=== PATIENT | female | born 1950 | race Caucasian/White ===

== ENCOUNTER 2024-11-22 19:45 | Emergency (ER) | payer MEDICARE, SELFPAY ==
--- NOTE | ~2024-11-22 | XR_ITS ---
EXAMINATION: XR femur LT min 2V DATE: 11/22/2024 22:37 INDICATION: Left femur injury post fall TECHNIQUE: Overlapping proximal and distal, AP and lateral views of the left femur were obtained. COMPARISON: None FINDINGS: Alignment is normal. No fracture. Chondrocalcinosis and mild osteoarthritis at the left hip. Left to dave knee arthroplasty which is in near-anatomic alignment. No evident knee joint effusion although as sessment is limited by an oblique plane of projection with portions of the femoral component projecti ng over largely obscuring the expected location of the suprapatellar pouch. IMPRESSION: 1. No acute osseous abnormality. Reviewed, dictated and finalized at location A.
--- NOTE | ~2024-11-22 | XR_ITS ---
EXAMINATION: XR chest 1V DATE: 11/22/2024 20:42 INDICATION: Femur fracture post fall TECHNIQUE: frontal view of the chest was obtained. COMPARISON: None FINDINGS: The lungs are clear with no focal airspace opacities, pulmonary edema, pleural effusion or pneumothor ax. Arch size is normal. Calcified left hilar lymph nodes consistent with old granulomatous disease. Mild to moderate thoracic spondylosis. IMPRESSION: 1. No acute cardiopulmonary disease. Reviewed, dictated and finalized at location A.
--- NOTE | ~2024-11-22 | XR_ITS ---
EXAMINATION: XR femur RT min 2V, XR hip RT 2V w AP pelvis DATE: 11/22/2024 20:42 INDICATION: Right hip and femur injury post fall TECHNIQUE: 1. Anteroposteriorview of the pelvis and anteroposterior and cross-table lateral views of the right h ip, 2. Overlapping frontal and lateral views of the right femur were obtained on overlapping proximal and distal images. COMPARISON: None. FINDINGS: Normal alignment at the right hip with no fracture or osteonecrosis. There is chondrocalcinosis and m inimal osteoarthritis at the bilateral hips. Severe lower lumbar spondylosis and mild bilateral sacra l iliac osteoarthritis. There is no oblique fracture of the distal right femoral metaphysis proximal to the femoral component of a right total knee arthroplasty. There is 4 cm proximal and medial displacement of the fracture a nd 30 degree varus angulation. The fracture does not appear to extend to involve the femoral componen t of the arthroplasty. Although suboptimally profiled the articulation between the femoral and tibial components appear to remain normal. The patella is obscured and is unclear where there has been an a ssociated patellar resurfacing. IMPRESSION: 1. Displaced and angulated distal metaphyseal fracture of the right femur which appears to approach c lose to but not directly involve the femoral component of a right total knee arthroplasty. Reviewed, dictated and finalized at location A. IMPRESSION: 1. Displaced and angulated distal metaphyseal fracture of the right femur which appears to approach close to but not directly involve the femoral component of a right total knee arthroplasty.
[2024-11-22 19:46] VITALS: BP 154/69; PULSE 51; RESP 18; TEMP 36.4; O2SAT 99
[2024-11-22 21:07] LABS: Hematocrit 39.0 % (37.0-47.0); Hemoglobin 12.3 g/dL (12.0-15.0); Immature Granulocyte Percent A 0.6 % (0-0.5); Lymphocytes Absolute Auto 0.84 K/mm3 (0.9-3.2); Mean Corpuscular HGB Conc 31.5 g/dl (32-36); Mean Corpuscular Hemoglobin 28.7 pg (26-34); Mean Corpuscular Volume 91.1 fl (80-100); Nucleated Red Blood Cells Absolute Auto 0.000 K/mm3 (0.0-0.012); Nucleated Red Blood Cells Perc 0.0 % (0.0-0.2); Platelet Count Result 171 k/mm3 (150-375); Red Blood Count 4.28 M/mm3 (4.2-5.4); White Blood Count 7.9 K/mm3 (4.5-10.0)
[2024-11-22] MEDS: ONDANSETRON INJ 4 MG/2 ML VIAL IV PUSH (21:07)
[2024-11-22] MEDS: HYDROmorphone HCL INJ (*CRX) 2 MG/ML VIAL 0.5 MG IV PUSH (21:07)
[2024-11-22 21:20] LABS: INR 1.0; Partial Thromboplastin Time 24.0 Seconds (22.3-36.8); Prothrombin Time 13.4 Seconds (11.1-14.7)
[2024-11-22 21:25] LABS: Alanine Aminotransferase 11 U/L (6-35); Albumin Level 4.0 g/dL (3.5-5.1); Alkaline Phosphatase 95 U/L (38-126); Anion Gap 3 mmol/L (4-12); Aspartate Amino Transferase 21 U/L (14-36); Bilirubin,Total 0.3 mg/dL (0.2-1.3); Blood Urea Nitrogen 37 mg/dL (7-17); Calcium 8.6 mg/dL (8.4-10.2); Carbon Dioxide 28 mmol/L (22-30); Chloride 102 mmol/L (98-107); Estimated CRCL calculation 32 ml/min; Estimated Glomerular Filt Rate 30; Glucose 211 mg/dL (65-110); Potassium 4.0 mmol/L (3.4-5.0); Sodium 133 mmol/L (137-145); Total Protein 6.6 g/dL (6.3-8.2)
[2024-11-22 21:55] VITALS: BP 154/57; PULSE 58; RESP 15; O2SAT 95
--- OUTSIDE RECORDS SUMMARY | 2024-11-22 22:46 | XMS_ITS | Continuity of Care Document ---
Author Organization [facility] Address [address] [place] [address] Phone Care Team Providers Care Depalletizer Operator Name Role Phone Justin Gardner PA-C Unavailable Unavailable Allergies, Adverse Reactions, Alerts Substance Reaction Status Criticality Penicillins Swelling Active No Information Medications Medication Instructions Dosage Effective Dates (start - stop) Status Comments Lantus Solostar U-100 Insulin 100 unit/mL (3 mL) subcutaneous pen - Active pioglitazone 30 mg tablet - Active metformin 500 mg tablet - Ac tive rosuvastatin 20 mg tablet - Active memantine 5 mg tablet - Acti ve fluconazole 150 mg tablet TAKE ONE TABLE T BY MOUTH FOR 1 DOSE - Active methimazole 5 mg tablet TAKE ONE TABLET EVERY DAY - Active donepezil 10 mg tablet - Act leif lisinopril 20 mg tablet TAKE ONE TABLET BY MOUTH EVERY DAY DIRECTED - Active rosuvastatin 10 mg tablet - Active sulfamethoxazole 800 mg-trimethoprim 160 mg tablet TAKE ONE TABLET EVERY 12 HOURS - Active cephalexin 500 mg capsule TAKE ONE CAPSU LE BY MOUTH EVERY 8 HOURS FOR 7 DAYS. - Active hydrochlorothiazide 25 mg tablet - Active Procedures Procedure Date OFFICE/OUTPATIENT VISIT, EST THERAPEUTIC EXERCISES NEUROMUSCULAR REEDUCATION THERAPEUTIC ACTIVITIES THERAPEUTIC EXERCISES NEUROMUSCULAR REEDUCATION MANUAL THERAPY 1/> REGIONS THERAPEUTIC EXERCISES MANUAL THERAPY 1/> REGIONS THERAPEUTIC EXERCISES MANUAL THERAPY 1/> REGIONS THERAPEUTIC EXERCISES PT Eval Moderate Complexity THERAPEUTIC EXERCISES XRAY C-SPINE, 4-5 VIEWS OFFICE/OUTPATIENT VISIT, EST XRAY KNEE, 4+ VIEWS XRAY KNEE, 4+ VIEWS XRAY PELVIS, 1-2 VIEWS OFFICE/OUTPATIENT VISIT, NEW Advance Directives Directive Yes / No Effective Date File Name No Information Encounters Encounter Description Practice Location Reason(s) For Visit Diagnoses Date Provider Providers Copied on Encounter OFFICE/OUTPA TIENT VISIT, EST [facility], [address] [place] [address], [address], [place] tel:[phone] [facility] Gurinder cervical spine (chief complaint) Body mass index [BMI] 32.0-32.9, adultSpondylo sis without myelopathy or radiculopathy , cervical regionCervica lgia 5 Jj Anderson. [address], [place], [place], [id number], [place]. tel:[phone] Referring Provider: DOUGLAS SCHAFER, [address] [facility], [place], [address]. tel:[phone] [facility], [address] [place] [address], [address], [place] tel:[phone] [facility] Jeremy-Anish anderson CervicalgiaAb normal postureStiffn ess of other specified joint, not elsewhere classified 5 Diana Mas. [address], [place], [address], [place]. tel:[phone] Referring Provider: Girffin Jiang, [address], [place], [address]. tel:[phone] [facility], [address] [place] [address], [address], [place] tel:[phone] [facility] CervicalgiaAb normal postureStiffn ess of other specified joint, not elsewhere classified 5 Kavon Jones. [address], [place], [id number], [place]. tel:[phone] Referring Provider: Griffin Jiang, [address] [facility] [facility] , [place], [address]. tel:[phone] [facility], [address] [place] [address], [address], [place] tel:[phone] [facility] CervicalgiaAb normal postureStiffn ess of other specified joint, not elsewhere classified 4 Kavon Jones. [address], [place], [id number], [place]. tel:[phone] Referring Provider: Griffin Jiang, [address] [facility] [address] , [place], [address]. tel:[phone] [facility], [address] [place] [address], [address], [place] tel:[phone] [facility] CervicalgiaAb normal postureStiffn ess of other specified joint, not elsewhere classified 4 Kavon Jones. [address], [place], [id number], [place]. tel:[phone] Referring Provider: Griffin Jiang, [address] [facility] , [place], [address]. tel:[phone] [facility], [address] [place] [address], [address], [place] tel:[phone] [facility] CervicalgiaAb normal postureStiffn ess of other specified joint, not elsewhere classified 4 Kavon Jones. [address] [place], [place], [address], [place]. tel:[phone] Referring Provider: Griffin Jiang, [address] [facility] , [place], [address]. tel:[phone] [facility], [address] [place] [address], [address], [place] tel:[phone] [facility] Therapy-Pow monica CervicalgiaAb normal postureStiffn ess of other specified joint, not elsewhere classified 4 Kavon Jones. [address], [place], [id number], [place]. tel:[phone] Referring Provider: Griffin Jiang, [address] [facility], [place], [address]. tel:[phone] OFFICE/OUTPA TIENT VISIT, [facility], [address] [place] [address], [facility], [place] tel:[phone] [facility] Neto thoracic spine (chief complaint) cervical spine (chief complaint) Body mass index [BMI] 32.0-32.9, adultCervical spondylosis 4 Rory Moya. [address] [place], [place], [id number], [place]. tel:[phone] Referring Provider: DOUGLAS SCHAFER, [address] [facility], [place], [address]. tel:[phone] OFFICE/OUTPA TIENT VISIT, [facility], [address] [place] [address], [address], [place] tel:[phone] [facility] Duque knee pain on the right greater than the left (chief complaint) Presence of artificial knee joint, bilateralBila teral primary osteoarthriti s of hip 2 Buzz Shen. [address] [place], [place], [id number], [place]. tel:[phone] Family History Family Member Type Diagnosis Age At Onset Father Problem (finding) Cancer, brain Problem Family history of Diabetes m ellitus Mother Problem (finding) Diabetes mellitus Payers Payer name Insurance type Covered alliance party ID Authoriza tion(s) [employer] Gold Or [employer] Medicare [id number] Social History Type Description Quantity Date Captured Comments Alcohol Use Details No Caffeine Use Details Unknown Tobacco Use Status Current non-smoker Smoking Status Never smoker Non-Smoking Tobacco Use Details : No Details Available : No Details Available Sex Female Vital Signs Date / Time: Height Weight BMI Pulse Rate Blood Pressure Temperature Respiratory Rate Body Surface Area Head Circumference Head Circ. Percentile Wt./Federico. Percentile BMI percentile Pulse Ox Inhaled Ox 10:41 AM 66.00 in 92.351 kg (203.60 lbs) 32.8 6 kg/m eter (2) Chief Complaint And Reason For Visit From encounter dated '06/03/2024 11:00'. cervical spine (chief complaint). Description: Ms Bass is a 73 year old female who complains of cervical spine. She presents with pain. The problem is improving. She rates her worst pain as 6/10. She rates her current pain as 3/10. Reason For Referral Reason For Referral No Information Plan Of Treatment Date Type Action Status Goal Dietary manageme nt education, guidance, and counseling completed Goal Lifestyle educat ion regarding diet completed Future Order: Radiology Order [facility] X-ray; Complete (4+ views) ([id number]), Ordered on: Ordered History Of Present Illness Encounter Date Complaint History Of Prese nt Illness cervical spine Ms Bass is a 8 2 year old female who complains of cervical spine. She presents with pain. The problem is improving. She rates her worst pain as 6/10. She rates her current pain as 3/10. thoracic spine Sophie Bass is a 73 year old female. She presents with pain and pain. She states that the symptoms have been acute non-traumatic and began 0 to 3 months ago. The symptoms occur constantly. Currently the patient states that the symptoms are moderate-severe. The pain is described as aching and dull. The patient is experiencing pain in the following location: mid back. She rates her worst pain as 8/10. She rates her current pain as 8/10. The symptoms are aggravated by sitting, walking and lateral bending. The patient has had a previous MRI. Prior NSAIDs include unspecified NSAIDS. Prior pain medications include unspecified pain medications. cervical spine Sophie Bass is a 73 year old female. She presents with pain and pain. She states that the symptoms have been acute non-traumatic and began 0 to 3 months ago. The symptoms occur constantly. Currently the patient states that the symptoms are moderate-severe. The pain is described as aching and dull. The patient is experiencing pain in the following location: neck. She rates her worst pain as 8/10. She rates her current pain as 8/10. The symptoms are aggravated by sitting, walking and lateral bending. The patient has had a previous MRI. Prior NSAIDs include unspecified NSAIDS. Prior pain medications include unspecified pain medications. knee pain on the rig ht greater than the left Sophie Bass is a 71 year old female. She presents with pain on the right greater than the left. The symptoms occur constantly with intermittent worsening. Currently the patient states that the symptoms are moderate. The pain is described as aching and sharp. The symptoms are aggravated by walking and ascending stairs. She denies having any associated symptoms. Functional Status Date Functional Assessmen t No Information Instructions Date Instruction Additional Infor martínez Dietary management e ducation, guidance, and counseling Related to Body mass index [BMI] 32.0-32.9, adult Exercise promotion: strength tra ining Related to Body mass index [BMI] 32.0-32.9, adult Lifestyle education regarding di et Related to Body mass index [BMI] 32.0-32.9, adult Giving encouragement to exercise Related to Body mass index [BMI] 32.0-32.9, adult Assessments Type Assessment Date assessment Body mass index [BMI] 32.0-32.9, adult assessment Spondylosis without myelopathy or radiculopathy, cervical region Feb-03-2025 assessment Cervicalgia Patient Care Teams Name Effective Dates (start - stop) Status Members No Information
--- OUTSIDE RECORDS SUMMARY | 2024-11-22 22:46 | XMS_ITS | Continuity of Care Document ---
Author Organization [facility] Address [address] [place] [address] Phone Care Team Providers Care External Grinder Name Role Phone Deb Garsia OD Unavailable Unavailable Allergies, Adverse Reactions, Alerts Substance Reaction Status Criticality Penicillins Anaphylaxis, Skin lesion, Angioe Active No Information Procedures Procedure Date Fundus photography Determination of refractive state Comp eye examination, estab patient Premium Frames Vision Basic Progressive C39 Lens Polycarb Lens Scratch resistant coating Basic Progressive C39 Lens Polycarb Lens Premium Frames Vision Fundus photography Determination of refractive state Office/outpatient visit,[facility] 2021 Advance Directives Directive Yes / No Effective Date File Name No Information Encounters Encounter Description Practice Location Reason(s) For Visit Diagnoses Date Provider Providers Copied on Encounter [facility], [address] [place], [place], [id number] tel:[phone] [facility] No Information 4 Sun Boyd. [address] [place], [place], [id number] . 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 [address] [place], [place], [id number] . tel: [phone] [facility], [address] [place], [place], [address] tel:[phone] [facility] No Information 4 Garsia Deb. [address] [place], [place], [id number] . tel: [phone] [facility], [address] [place], [place], [address] tel:[phone] [facility] No Information 2 Sun Boyd. [address] [place], [place], [address] . tel: [phone] Office/outpa tient visit,[facility], [address] [place], [place], [id number] tel:[phone] [facility] routine exam (chief complaint) Type 2 DM w/ severe nonproliferative diabetic retinopathy w/o macular edema of right eyeType 2 DM w/ moderate nonproliferative diabetic retinopathy w/o macular edema of left eyeCombined forms of age-related cataract, bilateralPresbyopia 2 Garsia Deb. [address] [place], [place], [id number] . tel: [phone] Family History Family Member Type Diagnosis Age At Onset Mother Problem (finding) Cardiovascular disease Father Problem (finding) Cancer, brain Mother Problem (finding) Diabetes mellitus Payers Payer name Insurance type Covered libertarian ID Authorjaquelinea tijanine(s) [employer] MEDICARE CI [id number] Social History Type Description Quantity Date Captured Comments Alcohol Use Details Unknown Caffeine Use Details Unknown Tobacco Use Status No Information Smoking Status No Information Sex Female Sexual Orientation Straight or heterosexual Gender Identity Female History Of Present Illness Encounter Date Complaint History Of Prese nt Illness routine exam The 72 year old patient presents for evaluation of routine exam. Reason for visit: routine eye exam Last eye exam: 11/2021Insurance: [employer] Medicare Any vision complaints? needing new glassesDiabetic (yes or no +diagnosis date)? yesIf yes, last A1C: Are you ok with being dilated today? 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
--- OUTSIDE RECORDS SUMMARY | 2024-11-22 22:46 | XMS_ITS | Data Portability ---
Author Organization [place] - [facility], [facility] [place] Address [address] [place] [address] Care Team Providers [facility] Location Manager Name Role Phone MARTINE GONZALEZ Retail Salesworker [phone] PATRICIA PAUL Neurologist FELIBERTO RIOJAS Information Architect Assessment Encounter Date Assessment Date Assessment LastModified by Organization Details LastModified Time 08/27/2024 08/27/2024 Patient presente d to office today for their Medicare Annual Wellness Visit. Education was provided on healthy nutrition, including a diet rich in fruits and vegetables, minimizing simple carbohydrates, salt, and saturated fats. Encouraged regular cardiovascular exercise such as walking at least 30 minutes daily, 5 times per week. Emphasized preventive health measures and educated pt on fall prevention and community-based lifestyle interventions to help reduce health risks and promote healthy living. Patient presented to office today for their Annual Wellness Visit. Active problems, PMH, Surgical History, Family History, Social History, Behavioral Health, Current Meds, and Allergies were reviewed and updated as clinically indicated. Discussed risk factors and provided referrals to educational and counseling services as appropriate. [email or web address] Not available 08/22/2024 08:52:15 Plan of Treatment Reminders Order Date Submit Date Provider Last Modified By Organization Details Last Modified Time Details Appointments ESTABLISH ED BRIEF-15 2024 01:30P Apolinar SCHAFER MD Not available Not available Not available ESTABLISH ED INTERMEDI ATE-30 2025 01:00P Apolinar SCHAFER MD Not available Not available Not available Lab CMP, serum or plasma 2024 025 [facility], [address], [address], [place], [address], 08/27/2024 20:45:52 HbA1c (hemoglob in A1c), blood 2024 025 [facility], [address], [address], [place], [address], 08/27/2024 20:11:57 lipid panel, serum 2024 025 [facility], [address], [address], [place], [address], 08/27/2024 20:45:59 microalbu min/creat inine, mass ratio, urine 2024 025 [facility], [address], [address], [place], [address], 08/28/2024 01:56:37 TSH, serum or plasma 2024 025 [facility], [address], [address], [place], [address], 05/27/2024 19:40:57 HbA1c (hemoglob in A1c), blood 2024 025 [facility], [address], [address], [place], [address], 05/27/2024 19:45:41 renal function panel, serum 2024 025 [facility], [address], [address], [place], [address], 05/27/2024 19:45:15 HbA1c (hemoglob in A1c), blood 2023 024 [facility], [address], [address], [place], [address], 02/19/2024 20:52:02 microalbu min/creat inine, mass ratio, urine 2023 [facility], [address], [address], [place], [address], 02/19/2024 20:57:52 renal function panel, serum 2023 [facility], [address], [address], [place], [address], 02/19/2024 19:48:33 erythrocy te sedimenta tion rate, QN, blood 2023 [facility], [address], [address], [place], [address], 02/12/2024 19:17:46 C reactive protein, QN, serum or plasma 2023 [facility], [address], [address], [place], [address], 02/12/2024 21:38:22 CMP, serum or plasma 2023 [facility], [address], [address], [place], [address], 02/12/2024 21:31:25 CBC w/ auto diff 2023 [facility], [address], [address], [place], [address], 02/12/2024 19:06:34 magnesium , serum or plasma 2023 024 [facility], [address], [address], [place], [address], 02/12/2024 21:31:27 vitamin D, 25-hydrox y, total, serum 2023 [facility], [address], [address], [place], [address], 02/12/2024 21:31:30 Referral None recorded. Procedures None recorded. Surgeries None recorded. Imaging MRI, cervical spine, w/o contrast 2023 [facility], [address], [address], [place], [address], 03/04/2024 15:58:45 MRI, brain, w/o contrast 2023 [facility], [address], [address], [place], [address], 03/04/2024 15:32:42 Medication Orders methocarb jak 500 mg tablet [address] [facility], [address] [place] [address], [address], 08/27/2024 10:19:08 hydrocodo ne 5 mg-acetam inophen 325 mg tablet 2023 [facility], [address] [place] [address], [address], 02/12/2024 14:35:40 Patient TargetsNo targets recorded. Patient Instructions Encounter Date Encounter Id Patient Instructions Last Modified By Organization Details Last Modified Time 02/19/2024 [id number] Additional follow-up to be determined. Her indicated that they may be moving [place] of [place] in a few months. [email or web address] Not available 02/19/2024 15:12:12 05/27/2024 [id number] I may need to postpone her for wellness visit for a week or so so that I can recheck her labs again. [email or web address] Not available 05/27/2024 14:10:15 08/27/2024 [id number] Education was provided on healthy nutrition, including a diet rich in fruits and vegetables, minimizing simple carbohydrates, salt, and saturated fats. Encouraged regular cardiovascular exercise such as walking at least 30 minutes daily, 5 times per week. Emphasized preventive health measures and community-based lifestyle interventions to help reduce health risks and promote healthy living. Schedule next annual exam in 1 year. Discussion Summary Active problems, PMH, surgical history, family history, social history, behavioral health, current meds, and allergies were reviewed and updated as clinically indicated. The findings of today's visit were discussed with the patient and her family. Medication reconciled and update completed. [email or web address] Not available 08/27/2024 08:33:29 Reason for Referral None Reported. Results Created Date Observation Date Name Description Value Unit Range Abnormal Flag Note LastModifiedBy Organization Detail LastModifiedTime 02/12/2002/12/2024 CBC-A UTO DIFF WBC. 8.5 K/uL 3.8-11 .0 normal Not Available [facility] [address], [place], [address], 02/12/2024 19:06:34 02/12/2002/12/2024 CBC-A UTO DIFF ne%. 74.1 % 43.9-7 8.2 normal Not Available [facility] [address], [place], [address], 02/12/2024 19:06:34 02/12/20 24 02/12/2024 CBC-A UTO DIFF ly%. 15.2 % 13.4-4 3.9 normal Not Available [facility] [address], [place], [address], 02/12/2024 19:06:34 02/12/20 24 02/12/2024 CBC-A UTO DIFF MO%. 8.9 % 4.9-12 .1 normal Not Available [facility] [address], [place], [address], 02/12/2024 19:06:34 02/12/2002/12/2024 CBC-A UTO DIFF eo%. 1.2 % 0.3-5. 1 normal Not Available [facility] [address], [place], [address], 02/12/2024 19:06:34 02/12/2002/12/2024 CBC-A UTO DIFF ba%. 0.6 % 0.0-1. 6 normal Not Available [facility] [address], [place], [address], 02/12/2024 19:06:34 02/12/2002/12/2024 CBC-A UTO DIFF ne#. 6.3 K/uL 1.6-8. 6 normal Not Available [facility] [address], [place], [address], 02/12/2024 19:06:34 02/12/2002/12/2024 CBC-A UTO DIFF ly#. 1.3 K/uL 0.4-4. 8 normal Not Available [facility] [address], [place], [address], 02/12/2024 19:06:34 02/12/2002/12/2024 CBC-A UTO DIFF MO#. 0.8 K/uL 0.2-1. 3 normal Not Available [facility] [address], [place], [address], 02/12/2024 19:06:34 02/12/2002/12/2024 CBC-A UTO DIFF eo#. 0.1 K/uL 0.0-0. 6 normal Not Available [facility] [address], [place], [address], 02/12/2024 19:06:34 02/12/2002/12/2024 CBC-A UTO DIFF ba#. 0.1 K/uL 0.0-0. 2 normal Not Available [facility] [address], [place], [address], 02/12/2024 19:06:34 02/12/20 24 02/12/2024 CBC-A UTO DIFF RBC. 4.41 M/uL 3.74-5 .11 normal Not Available [facility] [address], [place], [address], 02/12/2024 19:06:34 02/12/2002/12/2024 CBC-A UTO DIFF HGB. 11.6 g/dL 12.0-1 5.3 low Not Available [facility] [address], [place], [address], 02/12/2024 19:06:34 02/12/20 24 02/12/2024 CBC-A UTO DIFF HCT. 34.7 % 34.4-4 4.8 normal Not Available [facility] [address], [place], [address], 02/12/2024 19:06:34 02/12/20 24 02/12/2024 CBC-A UTO DIFF MCV. 79 fL 82-99 low Not Available [facility] [address], [place], [address], 02/12/2024 19:06:34 02/12/2002/12/2024 CBC-A UTO DIFF MCH. 26 pg 28-34 low Not Available [facility] [address], [place], [address], 02/12/2024 19:06:34 02/12/20 24 02/12/2024 CBC-A UTO DIFF MCHC. 33 g/dL 33-36 normal Not Available [facility] [address], [place], [address], 02/12/2024 19:06:34 02/12/20 24 02/12/2024 CBC-A UTO DIFF RDW. 17.3 % 12.0-1 5.2 high Not Available [facility] [address], [place], [address], 02/12/2024 19:06:34 02/12/20 24 02/12/2024 CBC-A UTO DIFF plt. 260 K/uL 140-40 0 normal Not Available [facility] [address], [place], [address], 02/12/2024 19:06:34 02/12/20 24 02/12/2024 SEDIM ENTAT ION RATE ESR. 55 mm/HR 2-30 high Not Available [facility] [address], [place], [address], 02/12/2024 19:17:46 02/12/20 24 02/12/2024 COMP. METAB OLIC PANEL glu 190 mg/dL 70-100 high Not Available [facility] [address], [place], [address], 02/12/2024 21:31:25 02/12/20 24 02/12/2024 COMP. METAB OLIC PANEL Na 140 mmol/ L 134-14 3 normal Not Available [facility] [address], [place], [address], 02/12/2024 21:31:25 02/12/20 24 02/12/2024 COMP. METAB OLIC PANEL K 4.4 mmol/ L 3.5-5. 2 normal Not Available [facility] [address], [place], [address], 02/12/2024 21:31:25 02/12/20 24 02/12/2024 COMP. METAB OLIC PANEL cL 99 mmol/ L 95-108 normal Not Available [facility] [address], [place], [address], 02/12/2024 21:31:25 02/12/20 24 02/12/2024 COMP. METAB OLIC PANEL CO2 27 mmol/ L 22-32 normal Not Available [facility] [address], [place], [address], 02/12/2024 21:31:25 02/12/20 24 02/12/2024 COMP. METAB OLIC PANEL Ca 9.5 mg/dL 8.9-10 .5 normal Not Available [facility] [address], [place], [address], 02/12/2024 21:31:25 02/12/20 24 02/12/2024 COMP. METAB OLIC PANEL BUN 37 mg/dL 6-25 high Not Available [facility] [address], [place], [address], 02/12/2024 21:31:25 02/12/20 24 02/12/2024 COMP. METAB OLIC PANEL creat 1.49 mg/dL 0.56-1 .16 high Not Available [facility] [address], [place], [address], 02/12/2024 21:31:25 02/12/20 24 02/12/2024 COMP. METAB OLIC PANEL egfrcr 37 mL/mi n/1.7 3m^2 >60 low The CKD-E PI 2020 equat ion has not been valid ated in pregn ant women . Not Available [facility] [address], [place], [address], 02/12/2024 21:31:25 02/12/20 24 02/12/2024 COMP. METAB OLIC PANEL tpro 6.6 g/dL 5.9-7. 9 normal Not Available [facility] [address], [place], [address], 02/12/2024 21:31:25 02/12/20 24 02/12/2024 COMP. METAB OLIC PANEL alb 4.1 g/dL 3.4-5. 3 normal Not Available [facility] [address], [place], [address], 02/12/2024 21:31:25 02/12/2002/12/2024 COMP. METAB OLIC PANEL A/G ratio 1.6 g/dL 1.0-2. 5 normal Not Available [facility] [address] [place] [address] [address], [place], [address], 02/12/2024 21:31:25 02/12/20 24 02/12/2024 COMP. METAB OLIC PANEL bili, tot 0.6 mg/dL 0.3-1. 2 normal Not Available [facility] [address], [place], [address], 02/12/2024 21:31:25 02/12/20 24 02/12/2024 COMP. METAB OLIC PANEL alk phos 78 IU/L 33-130 normal Not Available [facility] [address], [place], [address], 02/12/2024 21:31:25 02/12/20 24 02/12/2024 COMP. METAB OLIC PANEL AST 8 IU/L 10-42 low Not Available [facility] [address] [place] [address] Rd [address], [place], [address], 02/12/2024 21:31:25 02/12/20 24 02/12/2024 COMP. METAB OLIC PANEL ALT 6 IU/L 7-52 low Not Available [facility] [address], [place], [address], 02/12/2024 21:31:25 02/12/20 24 02/12/2024 MAGNE SIUM magnesium 1.9 mg/dL 1.7-2. 6 normal Not Available [facility] [address], [place], [address], 02/12/2024 21:31:27 02/12/2002/12/2024 VITAM IN D, 25 OH, TOTAL vitd 29 NG/mL 30-100 low 20 - 29 ng/mL is consi dered insuf ficmarc nt. Not Available [facility] [address], [place], [address], 02/12/2024 21:31:30 02/12/20 24 02/12/2024 CRP CRP 112.4 mg/L <10.0 high Not Available [facility] [address], [place], [address], 02/12/2024 21:38:22 02/13/20 24 02/12/2024 RF (MAHIN T) rf(qn) <14.0 IU/mL <14.0 normal Not Available [facility] [address], [place], [address], 02/13/2024 17:56:37 02/13/20 24 02/13/2024 MANISH SCREE N, IFA, W/REF L TITER AND PATTE RN - 249 MANISH screen, ifa NEGATI VE negati ve normal MANISH IFA is a first line scree n for detec ting the prese nce of up to appro ximat isreal 150 autoa ntibo dies in vario us autoi mmune disea ses. A negat leif MANISH IFA resul t sugge sts an MANISH-a ssoci ated autoi mmune disea se is not prese nt at this time, but is not defin itive . If there is high clini ira suspi cion for Sjogr en's syndr ome, testi ng for anti- SS-A/ Ro antib mariluz shoul d be consi dered . Anti- Narda-1 antib mariluz shoul d be consi dered for clini karely suspe cted infla mmato ry myopa nick . AC-0: Negat leif Inter natio nal Conse nsus on MANISH Patte rns (http s://d oi.or g/10. 1515/ [facility]- 2017- 0052) For addit ional infor ney abrams e refer to http: //[facility] danilo earl.Que stDia gnost ics.c om/fa q/FAQ 177 (This link is being provi ded for infor matio nal/ educa chencho l purpo ses only. ) Not Available [facility] [address], [place], [address], 02/16/2024 19:20:39 02/19/2002/19/2024 RENAL FUNCT ION PANEL glu 207 mg/dL 70-100 high Not Available [facility] [address], [place], [address], 02/19/2024 19:48:33 02/19/2002/19/2024 RENAL FUNCT ION PANEL Na 140 mmol/ L 134-14 3 normal Not Available [facility] [address], [place], [address], 02/19/2024 19:48:33 02/19/2002/19/2024 RENAL FUNCT ION PANEL K 4.3 mmol/ L 3.5-5. 2 normal Not Available [facility] [address], [place], [address], 02/19/2024 19:48:33 02/19/20 24 02/19/2024 RENAL FUNCT ION PANEL cL 101 mmol/ L 95-108 normal Not Available [facility] [address], [place], [address], 02/19/2024 19:48:33 02/19/20 24 02/19/2024 RENAL FUNCT ION PANEL CO2 29 mmol/ L 22-32 normal Not Available [facility] [address], [place], [address], 02/19/2024 19:48:33 02/19/20 24 02/19/2024 RENAL FUNCT ION PANEL BUN 24 mg/dL 6-25 normal Not Available [facility] [address], [place], [address], 02/19/2024 19:48:33 02/19/20 24 02/19/2024 RENAL FUNCT ION PANEL creat 1.49 mg/dL 0.56-1 .16 high Not Available [facility] [address], [place], [address], 02/19/2024 19:48:33 02/19/2002/19/2024 RENAL FUNCT ION PANEL egfrcr 37 mL/mi n/1.7 3m^2 >60 low The CKD-E PI 2020 equat ion has not been valid ated in pregn ant women . Not Available [facility] [address], [place], [address], 02/19/2024 19:48:33 02/19/20 24 02/19/2024 RENAL FUNCT ION PANEL Ca 9.2 mg/dL 8.9-10 .5 normal Not Available [facility] [address], [place], [address], 02/19/2024 19:48:33 02/19/20 24 02/19/2024 RENAL FUNCT ION PANEL alb 4.0 g/dL 3.4-5. 3 normal Not Available [facility] [address], [place], [address], 02/19/2024 19:48:33 02/19/20 24 02/19/2024 RENAL FUNCT ION PANEL phosphorus 4.0 mg/dL 2.5-4. 6 normal Not Available [facility] [address], [place], [address], 02/19/2024 19:48:33 02/19/20 24 02/19/2024 HEMOG LOBIN A1C HA1C 7.4 % <5.7 high Consi stent with diabe paola Not Available [facility] [address], [place], [address], 02/19/2024 20:52:02 02/19/20 24 02/19/2024 HEMOG LOBIN A1C EAG 166 mg/dL Not Available [facility] [address], [place], [address], 02/19/2024 20:52:02 02/19/20 24 02/19/2024 MICRO ALBUM IN W/UR CRE microalb. 444 mg/L <20 high Not Available [facility] [address] [address], [place], [address], 02/19/2024 20:57:51 02/19/20 24 02/19/2024 MICRO ALBUM IN W/UR CRE cre (U) 71 mg/dL 10-300 normal Not Available [facility] [address] [facility] [address], [place], [address], 02/19/2024 20:57:51 02/19/20 24 02/19/2024 MICRO ALBUM IN W/UR CRE microalbumin /creatinine ratio 627 mg/g <30 high Urine Alb/C reat Ratio : <30 mg/g Amberly l 30-30 0 mg/g Abnor mal >300 mg/g High Abnor mal Not Available [facility] [address], [place], [address], 02/19/2024 20:57:51 05/27/1905/27/2024 TSH TSH 0.590 uIU/m L 0.340- 4.200 normal Not Available [facility] [address], [place], [address], 05/27/2024 19:40:57 05/27/19 25 05/27/2024 RENAL FUNCT ION PANEL glu 179 mg/dL 70-100 high Not Available [facility] [address] [place] [address] Rd [address], [place], [address], 05/27/2024 19:45:15 05/27/19 25 05/27/2024 RENAL FUNCT ION PANEL Na 141 mmol/ L 134-14 3 normal Not Available [facility] [address] [place] [address] Rd [address], [place], [address], 05/27/2024 19:45:15 05/27/19 25 05/27/2024 RENAL FUNCT ION PANEL K 4.6 mmol/ L 3.5-5. 2 normal Not Available [facility] [address] [place] [address] Rd [address], [place], [address], 05/27/2024 19:45:15 05/27/19 25 05/27/2024 RENAL FUNCT ION PANEL cL 103 mmol/ L 95-108 normal Not Available [facility] [address], [place], [address], 05/27/2024 19:45:15 05/27/19 25 05/27/2024 RENAL FUNCT ION PANEL CO2 27 mmol/ L 22-32 normal Not Available [facility] [address] [place] [address] Rd [address], [place], [address], 05/27/2024 19:45:15 05/27/19 25 05/27/2024 RENAL FUNCT ION PANEL BUN 37 mg/dL 6-25 high Not Available [facility] [address], [place], [address], 05/27/2024 19:45:15 05/27/19 25 05/27/2024 RENAL FUNCT ION PANEL creat 1.72 mg/dL 0.56-1 .16 high Not Available [facility] [address], [place], [address], 05/27/2024 19:45:15 05/27/19 25 05/27/2024 RENAL FUNCT ION PANEL egfrcr 31 mL/mi n/1.7 3m^2 >60 low The CKD-E PI 2020 equat ion has not been valid ated in pregn ant women . Not Available [facility] [address], [place], [address], 05/27/2024 19:45:15 05/27/19 25 05/27/2024 RENAL FUNCT ION PANEL Ca 8.9 mg/dL 8.9-10 .5 normal Not Available [facility] [address], [place], [address], 05/27/2024 19:45:15 05/27/19 25 05/27/2024 RENAL FUNCT ION PANEL alb 4.1 g/dL 3.4-5. 3 normal Not Available [facility] [address], [place], [address], 05/27/2024 19:45:15 05/27/19 25 05/27/2024 RENAL FUNCT ION PANEL phosphorus 4.4 mg/dL 2.5-4. 6 normal Not Available [facility] [address], [place], [address], 05/27/2024 19:45:15 05/27/19 25 05/27/2024 HEMOG LOBIN A1C HA1C 6.8 % <5.7 high Consi stent with diabe paola Not Available [facility] [address], [place], [address], 05/27/2024 19:45:41 05/27/19 25 05/27/2024 HEMOG LOBIN A1C EAG 148 mg/dL Not Available [facility] [address], [place], [address], 05/27/2024 19:45:41 08/28/19 25 08/27/2024 HEMOG LOBIN A1C HA1C 6.9 % <5.7 high Consi stent with diabe paola Not Available [facility] [facility] [address], [place], [address], 08/27/2024 20:11:57 08/28/19 25 08/27/2024 HEMOG LOBIN A1C EAG 151 mg/dL Not Available [facility] [address], [place], [address], 08/27/2024 20:11:57 08/28/19 25 08/27/2024 COMP. METAB OLIC PANEL glu 100 mg/dL 70-100 normal Not Available [facility] [address], [place], [address], 08/27/2024 20:45:52 08/28/19 25 08/27/2024 COMP. METAB OLIC PANEL Na 143 mmol/ L 134-14 5 normal Not Available [facility] [address], [place], [address], 08/27/2024 20:45:52 08/28/19 25 08/27/2024 COMP. METAB OLIC PANEL K 4.4 mmol/ L 3.5-5. 2 normal Not Available [facility] [address], [place], [address], 08/27/2024 20:45:52 08/28/19 25 08/27/2024 COMP. METAB OLIC PANEL cL 104 mmol/ L 95-108 normal Not Available [facility] [address], [place], [address], 08/27/2024 20:45:52 08/28/19 25 08/27/2024 COMP. METAB OLIC PANEL CO2 28 mmol/ L 22-32 normal Not Available [facility] [address], [place], [address], 08/27/2024 20:45:52 08/28/19 25 08/27/2024 COMP. METAB OLIC PANEL Ca 9.3 mg/dL 8.9-10 .5 normal Not Available [facility] [address], [place], [address], 08/27/2024 20:45:52 08/28/19 25 08/27/2024 COMP. METAB OLIC PANEL BUN 28 mg/dL 6-25 high Not Available [facility] [address], [place], [address], 08/27/2024 20:45:52 08/28/19 25 08/27/2024 COMP. METAB OLIC PANEL creat 1.47 mg/dL 0.56-1 .16 high Not Available [facility] [address], [place], [address], 08/27/2024 20:45:52 08/28/19 25 08/27/2024 COMP. METAB OLIC PANEL egfrcr 37 mL/mi n/1.7 3m^2 >60 low The CKD-E PI 2020 equat ion has not been valid ated in pregn ant women . Not Available [facility] [address], [place], [address], 08/27/2024 20:45:52 08/28/19 25 08/27/2024 COMP. METAB OLIC PANEL tpro 6.7 g/dL 5.9-7. 9 normal Not Available [facility] [address], [place], [address], 08/27/2024 20:45:52 08/28/19 25 08/27/2024 COMP. METAB OLIC PANEL alb 4.3 g/dL 3.4-5. 3 normal Not Available [facility] [address], [place], [address], 08/27/2024 20:45:52 08/28/19 25 08/27/2024 COMP. METAB OLIC PANEL A/G ratio 1.8 g/dL 1.0-2. 5 normal Not Available [facility] [address], [place], [address], 08/27/2024 20:45:52 08/28/19 25 08/27/2024 COMP. METAB OLIC PANEL bili, tot 0.5 mg/dL 0.3-1. 2 normal Not Available [facility] [address], [place], [address], 08/27/2024 20:45:52 08/28/19 25 08/27/2024 COMP. METAB OLIC PANEL alk phos 76 U/L 33-130 normal Not Available [facility] [address], [place], [address], 08/27/2024 20:45:52 08/28/19 25 08/27/2024 COMP. METAB OLIC PANEL AST 13 U/L 10-42 normal Not Available [facility] [address], [place], [address], 08/27/2024 20:45:52 08/28/19 25 08/27/2024 COMP. METAB OLIC PANEL ALT 8 U/L 7-52 normal Not Available [facility] [address], [place], [address], 08/27/2024 20:45:52 08/28/19 25 08/27/2024 LIPID PANEL chol 208 mg/dL <200 high Not Available [facility] [address], [place], [address], 08/27/2024 20:45:59 08/28/19 25 08/27/2024 LIPID PANEL trig 114 mg/dL <150 normal Not Available [facility] [address], [place], [address], 08/27/2024 20:45:59 08/28/19 25 08/27/2024 LIPID PANEL HDL 61 mg/dL 50-150 normal Not Available [facility] [address], [place], [address], 08/27/2024 20:45:59 08/28/19 25 08/27/2024 LIPID PANEL LDL-C 125 mg/dL <100 high Not Available [facility] [address], [place], [address], 08/27/2024 20:45:59 08/28/19 25 08/27/2024 LIPID PANEL VLDL-C 22 mg/dL <30 normal Not Available [facility] [address], [place], [address], 08/27/2024 20:45:59 08/28/19 25 08/27/2024 LIPID PANEL non-HDL 147 mg/dL <130 high Not Available [facility] [address], [place], [address], 08/27/2024 20:45:59 08/28/19 25 08/27/2024 LIPID PANEL chol/HDL 3.4 ratio <5.0 normal Not Available [facility] [address], [place], [address], 08/27/2024 20:45:59 08/28/19 25 08/27/2024 LIPID PANEL LDL/HDL mhfac 2.0 ratio <3.0 normal Not Available [facility] [address], [place], [address], 08/27/2024 20:45:59 08/28/19 25 08/27/2024 MICRO ALBUM IN W/UR CRE microalb. 1110 mg/L <20 high Not Available [facility] [address], [place], [address], 08/28/2024 01:56:37 08/28/19 25 08/27/2024 MICRO ALBUM IN W/UR CRE cre (U) 74 mg/dL 10-300 normal Not Available [facility] [address], [place], [address], 08/28/2024 01:56:37 08/28/19 25 08/27/2024 MICRO ALBUM IN W/UR CRE microalbumin /creatinine ratio 1508 mg/g <30 high Urine Alb/C reat Ratio : <30 mg/g Amberly l 30-30 0 mg/g Abnor mal >300 mg/g High Abnor mal Not Available [facility] [address], [place], [address], 08/28/2024 01:56:37 03/04/20 24 03/04/2024 MRI, brain , w/o contr ast EXAM: MRI brain withou t contra st CLINIC AL HISTOR Y: New daily headac hes with halluc inatio ns. Left-s ided neck pain. COMPAR DANITZA: CT head 021 TECHNI QUE: Noncon trast MR images throug h the brain FINDIN GS: No abnorm al diffus ion signal . No pituit macho lesion s. Cranio cervic al juncti on is normal . No abnorm al gradie nt signal . No bleed or mass. No extra- axial fluid collec tions. Mild to modera te genera lized atroph y. No signif icant white matter diseas e. No cerebe llar or brains tem lesion s. No CP angle lesion s. Vascul ar flow voids are normal . No orbita l lesion s. No sinus air-fl uid levels . IMPRES KODAK: Mild-t o-mode rate atroph y. No bleed, mass or acute ischem ia. INTERP RETED AND DICTAT ED BY: Isaac Menjivar ombie Radiol ogical [facility] [employer] DD: 2023 AD: 2023 3:30 PM Electr onical ly Signed : 2023 3:30PM [email or web address] [facility] [address], [place], [address], 03/05/2024 12:35:50 03/04/20 24 03/04/2024 MRI, cervi ira spine , w/o contr ast EXAM: [facility] [place] CERVIC AL SPINE WITHOU T CONTRA [id number] CLINIC AL HISTOR Y: Cervic algia. Daily persis tent headac he. COMPAR DANITZA: Cervic al spine CT 021. TECHNI QUE: MRI of the cervic al spine was perfor med. FINDIN GS: Exam qualit y degrad ed by motion artifa ct of varyin g degree s on severa l sequen bonny. Severe degene rative spondy losis C5-6 and C6-7 with mild-m oderat e degene rative spondy losis elsewh ere in the cervic al spine. Mild-m oderat e facet arthro guevara throug hout the cervic al spine. No concer haseeb marrow signal abnorm ality. No signal abnorm ality in the cervic al cord. Evalua tion of indivi dual disc space levels demons trates genera lized disc bulge at C3-4 result ing in modera te right and mild left forami nal stenos is. At C4-5 there is no forami nal or centra l canal stenos is. At C5-6 genera lized disc bulge with endpla te osteop hytes result s in mild centra l canal stenos is. Modera te-sev ere right forami nal stenos is is also presen t. At C6-7 disc bulge with endpla te osteop hytes result s in mild centra l canal stenos is. Severe left forami nal stenos is is also presen t. At C7-T1 there is no forami nal centra l canal stenos is. IMPRES KODAK: 1. Motion limite d exam. Multil evel disc bulges and facet arthro guevara. 2. Disc bulges with endpla te osteop hytes at C5-6 and C6-7 result in mild centra l canal stenos es at these levels . Modera te-sev ere right forami nal stenos is at C5-6 and severe left forami nal stenos is at C6-7. 3. Genera lized disc bulge at C3-4 result ing in modera te right and mild left forami nal stenos is. INTERP RETED AND DICTAT ED BY: Isaac Menjivar ombie Radiol ogical [facility] [employer]. DD: 2023 AD: 2023 3:56 PM Electr onical ly Signed : 2023 3:56PM [email or web address] [facility] [address], [place], [address], 03/05/2024 16:22:23 04/25/20 24 04/25/2024 MAMMO , scree haseeb, bilat eral EXAM: Mammog michelle, Screen ing Bilate [id number]-[place] [id number] CLINIC AL HISTOR Y: Annual screen ing exam COMPAR DANITZA: 022. 06/05/19 20 TECHNI QUE: Standa rd 2D CC and MLO views were obtain ed. Additi onal left MLO view. Comput er aided detect ion utiliz ed for interp retati on. FINDIN GS: There are scatte red areas of fibrog landul ar densit y. No mass or distor tion. No suspic ious groupe d calcif icatio ns. No axilla ry adenop athy. IMPRES KODAK: Nothin g suspic ious for malign stefano. RECOMM ENDATI ONS: Yearly screen ing mammog michelle and monthl y breast self exam. BIRADS ASSESS MENT CODE: 1 NEGATI VE Risk assess ments are not perfor med on patien ts greate r than 70 years old or less than 35 years old, due to patien t's age outsid e parame ters used on the modifi ed Kavitha model. Risk assess ments are not perfor med on patien ts return ing for additi onal imagin g, patien ts having 6 month follow -up exams, or patien ts with a person al histor y of breast cancer . NOTE: The accura cy of mammog vipul in the detect ion of breast carcin corie is approx imatel y 85%. Dense breast s can obscur e small lesion s, includ ing malign ancies . A negati ve report should not delay biopsy of a clinic ally suspic ious area. Breast arteri al calcif icatio n (RUPINDER)/ vascul ar calcif icatio ns: Presen t. A strong associ ation has been shown betwee n RUPINDER and cardio vascul ar diseas e (CVD), indepe ndent of other known risk factor s. INTERP RETED AND DICTAT ED BY: Isaac Menjivar ombie Radiol ogical [employer] DD: 2023 AD: 2023 1:41 PM Electr onical ly Signed : 2023 1:41PM [email or web address] [facility] [address] [place], [place], [address], 04/26/2024 13:05:04 Result Notes Documentation Provider Name and Address Organization Details Recorded Time Mri, Brain, W/o Contrast : EXAM: MRI brain without contrast CLINICAL HISTORY: New daily headaches with hallucinations. Left-sided neck pain. COMPARISON: CT head 07/18/2020 TECHNIQUE: Noncontrast MR images through the brain FINDINGS: No abnormal diffusion signal. No pituitary lesions. Craniocervical junction is normal. No abnormal gradient signal. No bleed or mass. No extra-axial fluid collections. Mild to moderate generalized atrophy. No significant white matter disease. No cerebellar or brainstem lesions. No CP angle lesions. Vascular flow voids are normal. No orbital lesions. No sinus air-fluid levels. IMPRESSION: Dfhn-zf-bfrmihhv atrophy. No bleed, mass or acute ischemia. INTERPRETED AND DICTATED BY: Isaac Kat MD [employer]. AD: 03/04/2024 3:30 PM Electronically Signed: 03/04/2024 3:30PM Kasia Masters [facility], [place] - [facility] 03/05/2024 12:35:50 Mri, Cervical Spine, W/o Contrast : EXAM: [facility] [place] CERVICAL SPINE WITHOUT [id number] CLINICAL HISTORY: Cervicalgia. Daily persistent headache. COMPARISON: Cervical spine CT 07/18/2020. TECHNIQUE: MRI of the cervical spine was performed. FINDINGS: Exam quality degraded by motion artifact of varying degrees on several sequences. Severe degenerative spondylosis C5-6 and C6-7 with mild-moderate degenerative spondylosis elsewhere in the cervical spine. Mild-moderate facet arthropathy throughout the cervical spine. No concerning marrow signal abnormality. No signal abnormality in the cervical cord. Evaluation of individual disc space levels demonstrates generalized disc bulge at C3-4 resulting in moderate right and mild left foraminal stenosis. At C4-5 there is no foraminal or central canal stenosis. At C5-6 generalized disc bulge with endplate osteophytes results in mild central canal stenosis. Moderate-severe right foraminal stenosis is also present. At C6-7 disc bulge with endplate osteophytes results in mild central canal stenosis. Severe left foraminal stenosis is also present. At C7-T1 there is no foraminal central canal stenosis. IMPRESSION: 1. Motion limited exam. Multilevel disc bulges and facet arthropathy. 2. Disc bulges with endplate osteophytes at C5-6 and C6-7 result in mild central canal stenoses at these levels. Moderate-severe right foraminal stenosis at C5-6 and severe left foraminal stenosis at C6-7. 3. Generalized disc bulge at C3-4 resulting in moderate right and mild left foraminal stenosis. INTERPRETED AND DICTATED BY: Isaac Mcgowan MD [employer] AD: 03/04/2024 3:56 PM Electronically Signed: 03/04/2024 3:56PM MÓNICA Diaz [place] - [facility] 03/05/2024 16:22:23 Mammo, Screening, Bilateral : EXAM: Mammogram, Screening [id number] CLINICAL HISTORY: Annual screening exam COMPARISON: 10/12/2021. 06/05/2019 TECHNIQUE: Standard 2D CC and MLO views were obtained. Additional left MLO view. Computer aided detection utilized for interpretation. FINDINGS: There are scattered areas of fibroglandular density. No mass or distortion. No suspicious grouped calcifications. No axillary adenopathy. IMPRESSION: Nothing suspicious for malignancy. RECOMMENDATIONS: Yearly screening mammogram and monthly breast self exam. BIRADS ASSESSMENT CODE: 1 NEGATIVE Risk assessments are not performed on patients greater than 70 years old or less than 35 years old, due to patient's age outside parameters used on the modified Kavitha model. Risk assessments are not performed on patients returning for additional imaging, patients having 6 month follow-up exams, or patients with a personal history of breast cancer. NOTE: The accuracy of mammography in the detection of breast carcinoma is approximately 85%. Dense breasts can obscure small lesions, including malignancies. A negative report should not delay biopsy of a clinically suspicious area. Breast arterial calcification (RUPINDER)/vascular calcifications: Present. A strong association has been shown between RUPINDER and cardiovascular disease (CVD), independent of other known risk factors. INTERPRETED AND DICTATED BY: Isaac Kat MD [employer] AD: 04/25/2024 1:41 PM Electronically Signed: 04/25/2024 1:41PM MÓNICA Diaz [place] - [facility] 04/26/2024 13:05:04 Problems Name Problem SNOMED Code Status Onset Date Resolution Date Notes Provider Name and Address Organization Details Recorded Time Hyperlip idemia 83317019 Active 2018 [facility] 45 - Hyperlip idemia, unspecif ied hyperlip idemia type; Melisa Munzner null, [facility] 2 08:18:51 [facility] hyperten kodak 37143978 Active 2018 [facility] 187 - Hyperten kodak, [facility]; Melisa joseph, [facility] 2 08:18:38 Toxic multinod ular goiter 80076768 [facility] 42 - Toxic multinod ular goiter; Melisa joseph, [facility] 2 08:19:12 Type 2 diabetes mellitus 08801511 Completed 201801/26/2021 [facility] 18 Removal Reason: Removed to add further specific ity Melisa joseph, [facility] 2 08:19:31 Memory impairme nt 665754146 Completed 201802/10/2020 Disturba nce of memory; Last Assessed : 05 Jul 2019 11:02AM Identifi ed By: DOUGLAS SCHAFER Man aged By: DOUGLAS SCHAFER Edited: 05 Jul 2019 11:02AM Last Reviewed Date: 20190705 Problem Category : Active L ast Assessed By: DOUGLAS SCHAFER (Family Medicine ) DOUGLAS SCHAFER MD [address], [place], [address] , [facility] 0 14:26:04 Non-tanvi rgic rhinitis 77910050868 1 Active 2018 Nonaller gic rhinitis ; Last Assessed : 19 Mar 2019 2:24PM I dentifie d By: DOUGLAS SCHAFER Man aged By: DOUGLAS SHCAFER Edited: 19 Mar 2019 2:25PM L ast Reviewed Date: 20190319 Problem Category : Active L ast Assessed By: DOUGLAS SCHAFER (Family Medicine ) Not Available [facility] 0 02:49:57 Snoring 28075357 Active 2018 Snoring; Last Assessed : 13 May 2019 1:25PM I dentifie d By: DOUGLAS SCHAFER Man aged By: DOUGLAS SCHAFER Edited: 13 May 2019 1:25PM L ast Reviewed Date: 20190513 Problem Category : Active L ast Assessed By: JOSE ALEJANDRO VASQUEZ (Sleep Medicine ) Not Available [facility] 0 02:49:58 Anosogno megha 38767668 Active 2018 Anosogno megha; Last Assessed : 19 Mar 2019 2:10PM I dentifie d By: GILMARDOUGLAS Man aged By: DOUGLAS SCHAFER Edited: 19 Mar 2019 2:10PM L ast Reviewed Date: 20190319 Problem Category : Active L ast Assessed By: DOUGLAS SCHAFER (Family Medicine ) Not Available [facility] 0 02:49:58 Aphasia 39775700 Active 2018 Aphasia; Last Assessed : 19 Mar 2019 2:10PM I dentifie d By: GILMARDOUGLAS Man aged By: DOUGLAS SCHAFER Edited: 19 Mar 2019 2:10PM L ast Reviewed Date: 20190319 Problem Category : Active L ast Assessed By: DOUGLAS SCHAFER (Family Medicine ) Not Available [facility] 0 02:49:58 Cerebral atrophy 482589080 Active 2018 [facility] 52 Whitney Zelaya [facility] 0 14:12:52 Daytime somnolen ce 32592406903 0 Active 2018 Excessiv e daytime sleepine ss; Last Assessed : 13 May 2019 1:25PM I dentifie d By: GILMARDOUGLAS Man aged By: DOUGLAS SCHAFER Edited: 13 May 2019 1:25PM L ast Reviewed Date: 20190513 Problem Category : Active L ast Assessed By: JOSE ALEJANDRO VASQUEZ (Sleep Medicine ) Not Available [facility] 0 02:49:58 Patient encounte r status 856507867 Active 2018 Screenin g mammogra m, encounte r for; Identifi ed By: Leanne Estrada Managed By: DOUGLAS SCHAFER Edited: 10 Apr 2019 7:28AM L ast Reviewed Date: 20190410 Problem Category : Active Not Available [facility] 0 02:49:58 Obesity 173738094 Active 2019 Obesity; Last Assessed : 03 Jul 2019 10:43AM Identifi ed By: KENN MORAN Man aged By: KENN MORAN Edited: 03 Jul 2019 10:44AM Last Reviewed Date: 20190703 Problem Category : Active L ast Assessed By: KENN MORAN (Sleep Medicine ) Not Available [facility] 0 02:49:57 Obstruct leif sleep apnea syndrome 51090894 Active 2019 Obstruct leif sleep apnea; Last Assessed : 03 Jul 2019 10:43AM Identifi ed By: KENN MORAN Man aged By: KENN MORAN Las t Edited: 03 Jul 2019 10:44AM Last Reviewed Date: 20190703 Problem Category : Active L ast Assessed By: KENN MORAN (Sleep Medicine ) Not Available [facility] 0 02:49:57 Alzheime r's disease 35731403 Active 2019 [facility] 52 Melisa Carrie null, [facility] 2 08:19:16 Dementia 63326897 Completed 201908/09/2020 [facility] 52 - Alzheime r's type DOUGLAS SCHAFER MD [address], [place], [address] , [facility] 1 13:41:51 Screenin g for malignan t neoplasm of breast Active 2020 DOUGLAS SCHAFER MD [address], [place], [address] , [facility] 1 13:37:07 Screenin g for malignan t neoplasm of colon Active 2020 DOUGLAS SCHAFER MD [address], [place], [address] , [facility] 1 13:40:33 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 034297401 Active 2020 [facility] 18 - without macular edema (E11.329 3) Hannah Monique null, [facility] 1 14:07:29 Type 2 diabetes mellitus 90126336 Active 2020 [facility] 18 Melisa Carrie null, [facility] 2 08:19:31 Pain of bilatera l knee joints 81916711678 4104 Active 2021 DOUGLAS SCHAFER MD [address], [place], [address] , [facility] 2 14:31:32 Chronic kidney disease stage 3A 370567395 Active 2021 DOUGLAS SCHAFER MD [address], [place], [address] , [facility] 2 13:21:12 Headache 09352898 Active 2021 DOUGLAS SCHAFER MD [address], [place], [address] , [facility] 2 13:21:25 Eczema 79645555 Active 2021 DOUGLAS SCHAFER MD [address], [place], [address] , [facility] 2 13:10:59 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 441701092 Active 2021 DOUGLAS SCHAFER MD [address], [place], [address] , [facility] 4 13:55:51 Urinary symptoms 690222604 Active 2022 DOUGLAS SCHAFER MD [address], [place], [address] , [facility] 3 15:23:56 Constipa tion 93747832 Active 2023 DOUGLAS SCHAFER MD [address], [place], [address] , [facility] 4 05:50:36 Chronic constipa tion 114641340 Active 2023 DOUGLAS SCHAFER MD [address], [place], [address] , [facility] 4 13:45:11 Abdomina l pain 96072382 Active 2023 DOUGLAS SCHAFER MD [address], [place], [address] , [facility] 4 14:41:57 Viral upper respirat ory tract infectio n 896868599 Active 2023 DOUGLAS SCHAFER MD [address], [place], [address] [place] [address] , [facility] 4 11:07:07 Divertic ulitis of colon 090211974 Active 2023 DOUGLAS SCHAFER MD [address], [place], [address] [place] [address] , [facility] 4 12:22:06 Polyp of colon 72619382 Active 2023 10mm descendi ng DOUGLAS SCHAFER MD [address], [place], [address] [place] [address] , [facility] 4 14:10:45 Melanocy tic nevus of skin 151202987 Active 2023 WERO MCDANIELS-[address], [place], [address] [place] [address] , [facility] 4 14:31:16 New daily persiste nt headache 71538363743 9105 Active 2023 WERO MCDANIELS-[address], [place], [address] [place] [address] , [facility] 4 14:08:15 Neck pain 54603763 Active 2023 WERO MCDANIELS-[address] [address], [place], [address] , [facility] 4 14:09:33 Erythroc yte sediment ation rate above referenc e range 812841653 Active 2023 SILAS MCDANIELSP-C [address], [place], [address] , [facility] 4 08:51:57 C-reacti ve protein above referenc e range 98268860164 9104 Active 2023 YECENIASisi MELENDEZ 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 Procedures Surgical History Date Name Laterality Status Provider Name and Address Organization Details Recorded Time 5 Diabetic Foot Exam completed DOUGLAS SCHAFER MD [address], [place], [address], [facility] 08/27/2024 10:59:46 4 colonoscopy completed DOUGLAS SCHAFER MD [address], [place], [address], [facility] 12/28/2023 14:11:00 4 Diabetic Foot Exam completed DOUGLAS SCHAFER MD [address], [place], [address], [facility] 08/18/2023 13:47:43 3 MAWV completed SAMARA Galvan [facility] 06/23/2022 12:53:17 3 Whisper Voice Test completed DOUGLAS SCHAFER MD [address], [place], [address], [facility] 08/12/2022 14:26:40 3 Timed Mbc-Rs-tcq-Go completed DOUGLAS SCHAFER MD [address], [place], [address], [facility] 08/12/2022 14:26:37 3 Tobacco Cessation completed SAMARA Galvan [facility] 06/23/2022 12:53:17 3 Advanced Care Planning discussion completed SAMARA Galvan [facility] 06/23/2022 12:53:17 3 MAAWV completed Chana Liang [facility] 06/23/2022 12:53:17 3 Diabetic Foot Exam completed DOUGLAS SCHAFER MD [address], [place], [address], [facility] 08/12/2022 15:01:05 3 Depression Screening - Charges to be entered on the billing tab in the PHQ2/9 field completed DOUGLAS SCHAFER MD [address], [place], [address], [facility] 08/12/2022 14:26:03 3 FOCUSED HRA completed Chana Liang [facility] 06/23/2022 12:53:17 2 Diabetic Foot Exam completed DOUGLAS SCHAFER MD [address], [place], [address], [facility] 08/12/2021 14:55:22 1 MAWV completed DOUGLAS SCHAFER MD [address], [place], [address], [facility] 08/09/2020 13:41:17 1 Whisper Voice Test completed DOUGLAS SCHAFER MD [address], [place], [address], [facility] 08/11/2020 13:35:20 1 Timed Uqm-Ka-ooq-Go completed DOUGLAS SCHAFER MD [address], [place], [address], [facility] 08/11/2020 13:34:54 1 Tobacco Cessation completed DOUGLAS SCHAFER MD [address], [place], [address], [facility] 08/09/2020 13:41:17 1 Advanced Care Planning discussion completed DOUGLAS SCHAFER MD [address], [place], [address], [facility] 08/09/2020 13:41:17 1 MAAWV completed DOUGLAS SCHAFER MD [address], [place], [address], [facility] 08/09/2020 13:41:17 1 Depression Screening - Charges to be entered on the billing tab in the PHQ2/9 field completed DOUGLAS SCHAFER MD [address], [place], [address], [facility] 08/11/2020 13:34:30 1 Written Plan Preventive Screenings & Vaccines completed DOUGLAS SCHAFER MD [address], [place], [address], [facility] 08/09/2020 13:45:16 Imaging Results None recorded. Procedure Notes None recorded. Medical Equipment None Reported. Allergies Allergen ID Allergen Name Allergen Category Reaction Reaction Severity Criticality Documentation Date Start Date Code Code System Note Provider Name and Address Organization Details Recorded Time 875367 Product containin g penicilli n (product) medicatio n Not available Not available Not available 10/30/20192018 55038 8001 SNOMED Not Available [facility] 0 21:55:36 Medications Name Sig Start Date Stop Date Status Note LastModified by Organization Details LastModified Time methocarb jak 500 mg tablet TAKE TWO TABLETS 3 TIMES A DAY NEEDED FOR MUSCLE RELAXER 08/27 completed Not Available Not Available Not Available metformin 500 mg tablet TAKE TWO TABLETS BY MOUTH 2 TIMES A DAY 11/16 completed kidney disease Not Available Not Available Not Available donepezil 5 mg tablet 02/09 completed Not Available Not Available Not Available tizanidin e 4 mg tablet TAKE ONE TABLET BY MOUTH EVERY 8 HOURS X 5 DAY(S) NEEDED FOR MUSCLE SPASM 02/11 completed Not Available Not Available Not Available fluconazo le 150 mg tablet TAKE ONE TABLET EVERY 72 HOURS DIRECTED 02/11 completed Not Available Not Available Not Available hydrocodo ne 5 mg-acetam inophen 325 mg tablet TAKE ONE TABLET BY MOUTH EVERY 4 HOURS NEEDED active Not Available Not Available No t Available donepezil 10 mg tablet TAKE 1 TABLET BY MOUTH DAILY WITH FOOD active Not Available Not Available No t Available lisinopri l 20 mg tablet TAKE ONE TABLET BY MOUTH DAILY 2024 active Not Available Not Available Not Avai lable metronida zole 500 mg tablet TAKE ONE TABLET BY MOUTH EVERY 8 HOURS FOR 7 DAYS 02/11 completed Not Available Not Available Not Available ciproflox acin 500 mg tablet TAKE ONE TABLET BY MOUTH EVERY 12 HOURS FOR 7 DAYS 02/11 completed Not Available Not Available Not Available sulfameth oxazole 800 mg-trimet hoprim 160 mg tablet TAKE ONE TABLET EVERY 12 HOURS 08/12 completed Not Available Not Available Not Available tramadol 50 mg tablet TAKE 1/2 TABLET BY MOUTH EVERY 6 HOURS FOR 3 DAYS 02/11 completed Not Available Not Available Not Available meloxicam 7.5 mg tablet TAKE 1 TABLET DAILY. 08/11 completed Not Available Not Available Not Available famotidin e 20 mg tablet TAKE ONE TABLET BY MOUTH 2 TIMES A DAY active Not Available Not Available No t Available cephalexi n 500 mg capsule TAKE ONE CAPSULE BY MOUTH EVERY 8 HOURS FOR 7 DAYS. 02/05 completed Not Available Not Available Not Available simvastat in 20 mg tablet TAKE 1 TABLET BY MOUTH AT BEDTIME 02/09 completed Not Available Not Available Not Available triamcino lone acetonide 0.1 % topical ointment APPLY TO AFFECTED AREA ON LEFT LOWER LEG TWICE DAILY FOR TWO WEEKS EVERY MORNING, STOP FOR 1 WEEK, THEN NEEDED active Not Available Not Available No t Available methimazo le 5 mg tablet TAKE ONE TABLET BY MOUTH EVERY DAY active Not Available Not Available No t Available docusate sodium 100 mg capsule TAKE ONE CAPSULE BY MOUTH EVERY DAY FOR CONSTIPA TION. 2023 active Not Available Not Available Not Avai lable sertralin e 25 mg tablet TAKE ONE TABLET BY MOUTH EVERY DAY 05/27 completed Not Available Not Available Not Available bisacodyl 5 mg tablet,de layed release TAKE 1 TABLET BY MOUTH EVERY DAY NEEDED FOR CONSTIPA TION active Not Available Not Available No t Available hydrochlo rothiazid e 25 mg tablet TAKE ONE TABLET BY MOUTH EVERY DAY active Not Available Not Available No t Available polyethyl aylin glycol 3350 17 gram/dose oral powder Dissolve 1 scoop (17g) in 8 oz of liquid once daily as needed 2021 active Not Available Not Available Not Avai lable methimazo le 10 mg tablet 08/11 completed Not Available Not Available Not Available pioglitaz one 30 mg tablet TAKE 1/2 TABLET BY MOUTH EVERY DAY 02/18 completed Not Available Not Available Not Available ondansetr on 4 mg disintegr ating tablet TAKE ONE TABLET BY MOUTH 3 TIMES A DAY FOR 7 DAYS active Not Available Not Available No t Available sertralin e 50 mg tablet TAKE 1 TABLET BY MOUTH DAILY active Not Available Not Available No t Available Novolog FlexPen U-100 Insulin aspart 100 unit/mL (3 mL) subcutane ous USE UP TO 4 TIMES DAILY NEEDED PER SLIDING SCALE. MAXIMUM DAILY DOSE 100 UNITS. active Not Available Not Available No t Available rosuvasta tin 5 mg tablet TAKE 1 TABLET BY MOUTH DAILY AT BEDTIME 08/13 completed increasi ng dose to 10mg Not Available Not Available Not Available rosuvasta tin 10 mg tablet TAKE ONE TABLET BY MOUTH EVERY DAY 08/13 completed Not Available Not Available Not Available rosuvasta tin 20 mg tablet TAKE 1 TABLET EVERY DAY BY ORAL ROUTE. 11/16 completed Not Available Not Available Not Available rosuvasta tin 40 mg tablet TAKE ONE TABLET BY MOUTH EVERY DAY 2024 active Not Available Not Available Not Avai lable memantine 10 mg tablet active Not Available Not Available Not Available memantine 5 mg tablet Take 1 tablet (5mg) by mouth 2 times per day 02/18 completed Not Available Not Available Not Available BD Ultra-Fin e Mini Pen Needle 31 gauge x 3/16 USE DIRECTED . active Not Available Not Available No t Available Lantus Solostar U-100 Insulin 100 unit/mL (3 mL) subcutane ous pen INJECT 30 UNITS UNDER THE SKIN DAILY 2024 active Not Available Not Available Not Avai lable Victoza 3-Cristobal 0.6 mg/0.1 mL (18 mg/3 mL) subcutane ous pen injector 08/11 completed Not Available Not Available Not Available Farxiga 10 mg tablet TAKE ONE TABLET BY MOUTH EVERY DAY FOR DIABETES . 2024 active Not Available Not Available Not Avai lable Tresiba FlexTouch U-200 insulin 200 unit/mL (3 mL) subcutane ous pen active Not Available Not Available Not Available Tresiba FlexTouch U-100 insulin 100 unit/mL (3 mL) subcutane ous pen active Not Available Not Available Not Available naloxone 4 mg/actuat ion nasal spray INSTILL INTRANAS ALLY ONCE active Not Available Not Available No t Available Plenvu 140 gram-9 gram-5.2 gram powder packs TAKE BOWEL PREP PER THE GI OFFICE INSTRUCT IONS. 02/18 completed Not Available Not Available Not Available FreeStyle Laz 14 Day Sensor kit Use as directed to check blood sugars 11/19 completed Not Available Not Available Not Available FreeStyle Laz 2 [place] USE DIRECTED . active Not Available Not Available No t Available Fluad Quad (65yr up)(PF) 60 mcg (15 mcg x 4)/0.5mL IM syringe 08/11 completed Not Available Not Available Not Available Vitals Date Recorded Body height Body mass index (BMI) Body weight Heart rate Oxygen saturation Oxygen saturation in Arterial blood by Pulse oximetry Systolic And Diastolic Provider Name and Address Organization Details Last Updated DateTime 5 167.64 cm 34 kg/m2 49074.2 7 g 65 /min 96 % 96 % 126/66 mm[Hg] Susy Bennett [facility] 5 13:51:33 Date Recorded Body height Body mass index (BMI) Body weight Heart rate Oxygen saturation Oxygen saturation in Arterial blood by Pulse oximetry Systolic And Diastolic Provider Name and Address Organization Details Last Updated DateTime 5 167.64 cm 34.2 kg/m2 80246.8 6 g 72 /min 96 % 96 % 112/64 mm[Hg] Susy Bennett [facility] 5 10:21:32 Date Recorded Body height Heart rate Oxygen saturation Oxygen saturation in Arterial blood by Pulse oximetry Systolic And Diastolic Provider Name and Address Organization Details Last Updated DateTime 167.64 cm 66 /min 96 % 96 % 128/68 mm[Hg] Susy Donald FERMENTER WINE [facility] 14:31:02 Date Recorded Body height Body mass index (BMI) Body weight Heart rate Oxygen saturation Oxygen saturation in Arterial blood by Pulse oximetry Systolic And Diastolic Provider Name and Address Organization Details Last Updated DateTime 167.64 cm 32.9 kg/m2 97182.8 4 g 71 /min 96 % 96 % 122/64 mm[Hg] MÓNICA Acosta, CBCS [facility] 13:25:43 Date Recorded Body height Body mass index (BMI) Body weight Heart rate Systolic And Diastolic Provider Name and Address Organization Details Last Updated DateTime 02/19/2024 167.64 cm 32.6 kg/m2 06085.94 g 68 /min 124/82 mm[Hg] Susy ELMER Bennett [facility] 02/19/2024 14:38:41 Social History Question Answer Notes LastModified by Organizat ion Details LastModified Time Tobacco Smoking Status Never Smoker Xuan joseph, [facility] 02/17/2023 13:01:22 How Hard Is It For You To Pay For The Very Basics Like Food, Housing, Medical Care, And Heating? [id number] [email or web address] Information not available 02/17/2023 Dependence Screening: In The Past 7 Days, Did You Need Help From Others To: Perform Everyday Activities Such As Eating, Getting Dressed, Grooming, Bathing, Walking Or Using The Toilet? No Information not available 08/11/2020 Dependence Screening: In The Past 7 Days, Did You Need Help From Others To Take Care Of Things Such As Laundry And Housekeeping, Banking, Shopping, Using The Telephone, Food Preparation, Transportation, Or Taking Care Of Your Own Medications? No Information not available 08/11/2020 Do You Drink Alcohol? If Patient Drinks More Than The Recommended Daily Intake Of Alcohol (1 Drink Per Day Women Or 2 Drinks Per Day Men) Please Complete The CAGE Questionnaire Found In The Screening Section. No Information not available 08/11/2020 Exercise Screening: How Intense Is Your Typical Exercise? I Am Currently Not Exercising Information not available 08/12/2022 How Often Does Anyone, Including Family Physically Hurt Or Threatened To Hurt You? Never Information not available 08/11/2020 How Often Does Anyone, Including Family, Scream Or Curse At You? Never Information not available 08/11/2020 In The Past 7 Days, How Often Have You [place] Sleepy During The Daytime? IF Patient Answers Usually Or Always, Please Complete The STOP-Bang Questionnaire Found In The Screening Section. Sometimes Information not available 08/12/2022 MAWV Urinary Incontinence Screening (For Patients 65 Years And Older) During The Last Three Months Have You Leaked Urine (even A Small Amount)? No Information not available 08/11/2020 Quality Of Life Scale Got To Work/volunteer Each Day. Normal Daily Activities Each Day. Have Social Life Outside Of Work. Take An Active Part In Family Life (NORMAL QUALITY OF LIFE). Information not available 08/11/2020 Quality Of Life Screening: How Much Bodily Pain Have You Had During The Past 4 Weeks? If Moderate Or Severe, Then Complete The Quality Of Life Scale Found Below. None Information not available 08/12/2022 Do You Have A Healthcare Power Of Manager Online? (If Yes, Please Bring A Copy To The Next Visit) No Information not available 08/11/2020 Do You Have A Living Will?(If Yes, Please Bring A Copy To The Next Visit) No Information not available 08/11/2020 Exercise Screening: How Often Do You Exercise? Never Information not available 08/12/2022 Discussed The Importance Of Advanced Care Plan? If Patient Answers NO To Any, Provide Advance Care Plan Document Yes Information not available 08/11/2020 Dietary Screening: How Often In The Past 7 Days Did You Eat 2 1/2 Cups Of Vegetables In A Single Day? Most Days Information not available 08/12/2022 Dietary Screening: How Often In The Past 7 Days Did You Eat 2 Cups Of Fruit In A Single Day? Almost Every Day Information not available 08/12/2022 Dietary Screening: How Often In The Past 7 Days Did You Eat 3 Cups Of Dairy In A Single Day? Almost Every Day Information not available 08/11/2020 Dietary Screening: How Often In The Past 7 Days Did You Eat 5 1/2 Oz. Of Protein In A Single Day? 1 Oz Of Lean Meat, Poultry, Fish, Egg, 1 TBSP Peanut Butter, 1/2 Cup Nuts/seeds, 1/4 Cup Beans Or Peas) Almost Every Day Information not available 08/11/2020 Dietary Screening: How Often In The Past 7 Days Did You Eat 6 Oz Of Grains In A Single Day? (1 Ounce Of Bread, 1/2 Cup Of Cooked Rice, Cereal, Or Pasta) Most Days Information not available 08/11/2020 Dietary Screening: How Often In The Past 7 Days Did You Eat Fried Or High Fat Foods (fried Chicken, Fried Fish, [place], Uzbek Mcbrides, Potato Chips, Pierz Chips, Doughnuts, Creamy Salad Dressings, And Foods Made With Whole Milk, Cream, Cheese Or Mayonnaise) Some Days Information not available 08/12/2022 Dietary Screening: How Often In The Past 7 Days Did You Drink Sugar-sweetened (not Diet) Beverages? Almost Never Information not available 08/11/2020 Sex: Unknown Functional Status Question Answer Note LastModified by Organization D etails LastModified Time What is your level of alcohol consumption? None Information not available 08/12/2022 Mental Status None recorded. Family History Relationship Description Onset Age of this Age Resolved Age Notes LastModified by Organization Details LastModified Time Mother Family history of Alzheimer's disease Not available 2019 14:06:55 Mother Diabetes mellitus Not available 2019 14:07:02 Notes:Mother: Family history of Alzheimer's disease, Family history of diabetes mellitus Medical History No medical history recorded. Gynecological HistoryNo gynecological history recorded. Obstetrics History GPAL:G 0 P 0 0 0 0 Immunizations Vaccine Type Date Status Note Provider Nam e and Address Organization Details Recorded Time Influenza, split virus, trivalent, preservative 7 completed Not Available [facility] 11/18/2019 04:29:22 zoster live 4 completed Not Available [facility] 11/18/2019 04:29:23 zoster live 5 completed Not Available [facility] 11/18/2019 04:29:23 zoster live 5 completed Not Available [facility] 11/18/2019 04:29:23 pneumococcal polysaccharide PPV23 4 completed Not Available [facility] 11/18/2019 04:29:23 Pneumococcal conjugate PCV 13 9 completed Chana Liang [place], [place] [facility] 04/05/2022 08:31:36 Influenza, split virus, quadrivalent, preservative 6 completed Chana Li[place], [place] [facility] 04/05/2022 08:31:36 typhoid, oral 8 completed Chana Li[place], [place] [facility] 04/05/2022 08:31:36 typhoid, oral 8 completed Chana Li[place] [facility] 04/05/2022 08:31:36 Influenza, adjuvanted, quadrivalent, PF 0 completed Chana Li[place] [facility] 04/05/2022 08:31:36 COVID-19, mRNA, LNP-S, PF, 100 mcg/0.5mL dose or 50 mcg/0.25mL dose 1 completed Chana Li[place], [place] [facility] 04/05/2022 08:31:36 COVID-19, mRNA, LNP-S, PF, 100 mcg/0.5mL dose or 50 mcg/0.25mL dose 2 completed Chana Li[place], [place] [facility] 04/05/2022 08:31:36 IPV 7 completed Chana [place], [place] [facility] 04/05/2022 08:31:36 zoster live 3 completed Chana Li[place], [place] [facility] 04/05/2022 08:31:36 Vaccinia (smallpox, mpox), live 7 completed Chana Liang [place] null, [facility] 04/05/2022 08:31:36 COVID-19, mRNA, LNP-S, PF, 100 mcg/0.5mL dose or 50 mcg/0.25mL dose 1 completed Chana Liang [place] null, [facility] 04/05/2022 08:31:36 Influenza, adjuvanted, quadrivalent, PF 1 completed Chana Liang [place] null, [facility] 04/05/2022 08:31:36 DTP 8 completed Chana Liang [place] null, [facility] 04/05/2022 08:31:36 COVID-19, mRNA, LNP-S, PF, 100 mcg/0.5mL dose or 50 mcg/0.25mL dose 1 completed SAMARA Galvan null, [facility] 04/05/2022 08:31:36 Vaccinia (smallpox, mpox), live 8 completed Chana Liang [place] null, [facility] 04/05/2022 08:31:36 typhoid, oral 9 completed Chana Liang [place] null, [facility] 04/05/2022 08:31:36 Influenza, high-dose, quadrivalent, PF 2 completed DOUGLAS SCHAFER MD [address], [place], [address], [facility] 02/18/2022 13:43:43 zoster recombinant 3 completed Susy Bennett, FERMENTER WINE null, [facility] 08/12/2022 15:42:53 zoster recombinant 3 completed MÓNICA Acosta, CBCS null, [facility] 11/15/2022 13:52:07 Influenza, high-dose, quadrivalent, PF 3 completed Susy Bennett, FERMENT[facility] WINE [facility] 14:04:33 Past Encounters Encounter ID Performer Location Encounter Start Date Encounter Closed Date Diagnosis/Indication Diagnosis SNOMED-CT Code Diagnosis ICD10 Code Diagnosis Note [id number] DOUGLAS SCHAFER MD [facility] [address] [place] [address] 02/10/2020 13:34:11 02/10/2020 14:34:43 Type 2 diabetes mellitus 20667515 E11.3293 Doing well Essential hypertension 51897324 I10 stable Alzheimer's disease 2692 9004 G30.9 stable [id number] [facility] [address] [place] [address] [place] [address] 02/21/2020 14:04:45 02/21/2020 14:17:06 Paronychia of toe 501752447 L03.039 Her was also present on the phone through [facility] along with their granddaugh ter and they all understood the plan to soak the foot in Epsom salt for 20 minutes followed by applicatio n of triple antibiotic ointment twice daily and they're to call on Monday if worsening or not improving. [id number] DOUGLAS SCHAFER MD [facility] [address] [facility] [address] 04/17/2020 14:45:39 04/17/2020 15:12:06 Paronychia of toe of left foot [id number] 9867857 L03.032 Instructed to soak the foot in Epsom salt once or twice daily. Expect resolution over the next several days. [id number] [facility] [address] [facility] [facility] [place] [address] 05/14/2020 13:27:15 05/14/2020 13:58:54 Subclinical hyperthyroidism 388328793 E05.80 [id number] DOUGLAS SCHAFER MD [facility] [address] [facility] [address] 07/23/2020 14:42:19 07/23/2020 15:03:56 Fall 9492810 W19.XXXD No apparent injuries. Follow-up as scheduled in 3 weeks or sooner if needed. Closed injury of head 45 64163692 06 S09.90XD [id number] [facility] ([facility] [address] [place] [address] 07/29/2020 11:07:50 07/29/2020 11:07:50 [id number] DOUGLAS SCHAFER MD [facility] [address] [place] [address] 08/11/2020 12:52:10 08/11/2020 14:27:59 Adult health examination 083442282 Z00.00 Generally doing well. Her is taking good care of her at home. Schedule wellness visit for next year. Anticipate 6-month follow-up. Screening for disorder 019667745 Z13.9 Alzheimer's disease 2692 9004 G30.9 stable Essential hypertension 14847907 I10 stable Hyperlipidemia 41088228 E78.5 on statin Non-allergic rhinitis 31 50261782 01 J31.0 Stable Obstructiv e sleep apnea syndrome 24051036 G47.33 stable Toxic mult inodular goiter 96722756 E05.20 Managed by Endocrinol ogy Type 2 kyle betes mellitus 63059486 E11.3293 Doing well Screening for malignant neoplasm of breast 677119311 Z12.39 Can wait till next year Hepatitis C screening 41 3013480 Z11.59 Screening for malignant neoplasm of colon 840597963 Z12.11 Z12.12 [id number] MD [facility] [address] [place] [address] 11/13/2020 12:57:45 11/13/2020 13:28:16 Essential hypertension 18539471 I10 stable by home readings Type 2 kyle betes mellitus 95962215 E11.3293 Doing well Toxic mult inodular goiter 68458995 E05.20 Managed by Endocrinol ogy [id number] MD [facility] [address] [place] [address] 11/19/2020 13:48:14 11/19/2020 14:32:22 Paronychia of toe of right foot 3403405814 5461996 L03.031 Will begin abx as below. She will call if worsening or not improving with treatment. [id number] DOUGLAS SCHAFER MD _[facility] S [address] [place] [address] [place] [address] 02/12/2021 14:30:20 02/12/2021 15:01:56 Type 2 diabetes mellitus 82927980 E11.3293 Doing well Essential hypertension 04736726 I10 stable by home readings [id number] DOUGLAS SCHAFER MD _[facility] S [address] [place] [address] [place] [address] 4 05/10/2021 14:19:05 05/10/2021 15:13:17 Exposure to SARS-CoV-2 323741342 Z20.822 Tested for covid. Continue quarantine until results available. Continue symptomati c therapy. Push fluids, rest. Sore throat 658292418 J0 2.9 Negative strep. 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 526748387 E11.3299 UTD on eye exam Type 2 kyle betes mellitus 83539530 E11.3293 Doing well Toxic mult inodular goiter 02693718 E05.20 Managed by Endocrinol ogy Screening for malignant neoplasm of breast 265872657 Z12.39 Screening for malignant neoplasm of colon 526491456 Z12.11 Z12.12 done 08/20/20 Cerebral atrophy 0986536 00 G31.9 Unchanged Pain of bi lateral knee joints 8537349659 95755 M25.561 M25.562 [id number] DOUGLAS SCHAFER MD _[facility] S [address] [place] [address] [place] [address] 4 11/15/2021 13:05:45 11/15/2021 13:42:56 Essential hypertension 12128054 I10 Well-contr olled Hyperlipidemia 93984605 E78.5 Increased statin 08/20 Type 2 kyle betes mellitus 17442972 E11.3293 Doing well Headache 22404328 R51.9 Tylenol as needed. I do not think there is any indication for additional evaluation at this time. [id number] DOUGLAS SCHAFER MD [facility] [address] [place] [address] [place] [address] 4 11/24/2021 08:52:50 11/24/2021 09:19:06 Pigmented skin lesion 368458750 L81.9 This appears benign. Advised they continue to monitor for any changes in size, shape or color. verbalizes understand ing. [id number] DOUGLAS SCHAFER MD [facility] [address] [place] [address] 4 01/13/2022 13:50:32 01/13/2022 14:19:03 Constipation 24390050 K59.00 I have advised adding Miralax daily. Encouraged water intake. She may try fleet enema if symptoms are persisting . [id number] DOUGLAS SCHAFER MD [facility] [address] [place] [address] 4 02/18/2022 12:59:42 02/18/2022 13:38:52 Essential hypertension 88470378 I10 Well-contr olled Hyperlipidemia 70747724 E78.5 Increased statin 08/20 Type 2 kyle betes mellitus 45205081 E11.3293 Doing well Eczema 30513613 L30.9 Recommende d hydrocorti sone cream and moisturizi ng lotion as needed for rash. 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00 Generally doing well. Her is taking good care of her at home. Schedule wellness visit for next year. Anticipate 6-month follow-up. 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 Monitoring kidney function. Screening for malignant neoplasm of colon 757535427 Z12.11 Z12.12 Cologuard done 07/2020, repeat 3 years Screening for malignant neoplasm of breast 114037957 Z12.39 Mammogram done 10/20, due 10/21 Aphasia 05377016 R47.01 improved Non-allergic rhinitis 31 67044482 01 J31.0 Stable Obesity 526134554 E66.9 unchanged Obstructiv e sleep apnea syndrome 37154270 G47.33 stable Toxic mult inodular goiter 84006783 E05.20 Managed by Endocrinol ogy Active or passive immunization 422506582 Z23 [id number] MD [facility] [address] [place] [address] 09/29/2022 15:12:58 09/29/2022 15:35:24 Urinary symptoms 051445908 R39.9 [id number] MD [facility] [address] [place] [address] 11/15/2022 12:56:40 11/15/2022 13:50:58 Type 2 diabetes mellitus 07145490 E11.3293 E11.22 Regular follow-up with ophthalmol ogy. Monitoring kidney function. 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 Monitoring kidney function. 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 767833688 E11.3292 UTD on eye exam Essential hypertension 44538778 I10 Well-contr olled Chronic ki dney disease stage 3A 611394603 N18.31 Monitoring levels Alzheimer's disease 2692 9004 G30.9 stable Toxic mult inodular goiter 65239649 E05.20 Managed by Endocrinol ogy Active or passive immunization 943930801 Z23 [id number] DOUGLAS SCHAFER MD [facility] S [address] [place] [address] [place] [address] 4 02/27/2023 13:06:02 02/27/2023 13:56:04 Chronic kidney disease stage 3A 604755139 N18.31 Toxic mult inodular goiter 23684113 E05.20 [id number] DOUGLAS SCHAFER MD [facility] S [address] [place] [address] 4 08/18/2023 12:56:32 08/18/2023 14:13:51 Alzheimer's disease 78748881 G30.9 stable on donepezil, memantine Chronic ki dney disease stage 3A 965856711 N18.31 Monitoring levels. On lisinopril . Consider adding an SGLT2 inhibitor. Cost may be an issue. Essential hypertension 83084270 I10 Well-contr olled on lisinopril , hydrochlor othiazide. May need to consider stopping this depending on kidney function. Hyperlipidemia 37142020 E78.5 Rosuvastat in Type 2 kyle betes mellitus 07176880 E11.3293 E11.22 Regular follow-up with ophthalmol ogy. Monitoring kidney function. Lantus 30 units daily plus sliding scale insulin. Metformin. Likely stop metformin. 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 Discussed possibly adding Linzess. [id number] DOUGLAS SCHAFER MD [facility] [address] [place] [address] [place] [address] 10/12/2023 14:09:32 10/12/2023 14:57:47 Chronic constipation 248642642 K59.09 Continue all current medication s. Abdominal pain 55250352 R10.9 [id number] DOUGLAS SCHAFER MD [facility] S [address] [place] [address] [place] [address] 4 10/27/2023 10:53:38 10/27/2023 11:28:34 Viral upper respiratory tract infection 993286069 J06.9 Rest, fluids. Continue over-the-c ounter medicines of choice. Call if symptoms are worsening. 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 Monitoring kidney function. Lantus 30 units daily plus sliding scale insulin, Farxiga Essential hypertension 47164496 I10 Well-contr olled on lisinopril , hydrochlor othiazide. Chronic baltazar dney disease stage 3A 046888494 N18.31 Monitoring levels. On lisinopril . Farxiga Eczema 60241735 L30.9 Recommende d hydrocorti sone cream and moisturizi ng lotion as needed for rash. [id number] DOUGLAS SCHAFER MD _[facility] S [address] [place] [address] 12/18/2023 14:20:14 12/18/2023 14:49:22 Diverticulitis of colon 807995171 K57.32 She will complete the antibiotic s. Appears to be recovering well. Chronic baltazar dney disease stage 3A 637378410 N18.31 I will recheck the levels today as she did appear to have some acute on chronic issues in the ER. GFR was 30. [id number] DOUGLAS SCHAFER MD _[facility] [address] [place] [address] 01/09/2024 13:39:18 01/09/2024 13:57:05 Chronic kidney disease stage 3A 404914343 N18.31 [id number] DOUGLAS SCHAFER MD [facility] [address] [facility] [place] [address] 01/29/2024 14:03:44 01/29/2024 15:15:32 Melanocytic nevus of skin 848752277 D22.9 Suspicious appearing nevus on the top of the right ear with other scattered benign appearing nevi vs. actinic keratosis and eczema on the bilateral arms and lower legs. She denies a history of skin cancer, but would like to get a general skin check through dermatolog y to make sure all skin issues are benign.A referral order was placed to dermatolog y today as below and they will call her to scheduleFo llow up with us or with dermatolog y in the future for any new skin issues (bleeding moles, itchy moles, rapidly changing lesions, etc.)Stron gly encouraged to cover her skin with light clothing and/or apply a thorough amount of sunscreen if she plans to spend any extended time outside in the sunshineEn couraged hats and sunglasses while in the sunshine as well [id number] MD [facility] S [address] [place] [address] 02/12/2024 13:10:18 02/12/2024 14:28:03 New daily persistent headache 1127060154 10052 G44.52 We will check some lab work today as below and call her and her with the results once they returnShe will complete an MRI of her brain as below and we will call her and her with results once completedS he can take tylenol OTC as neededReco mmended a cool compress over her eyes and forehead intermitte ntly with rest in a quiet and dark room as neededStro ngly encouraged to make sure she is remaining well hydrated with plenty of water and other electrolyt e rich fluids dailyHer was instructed to call 911 or go to the ER immediatel y for the developmen t of any stroke-lik e symptoms discussed today Neck pain 93127983 M54.2 Pain with limited ROM, worse along the left side of her neck. She will get an MRI of her cervical spine as below as well and we will call her and her with results once they returnLike ly ok to go to the chiropract or tomorrow as scheduledS he will begin methocarba mol 500 mg 1-2 tablets up to 3 times daily as needed as below; side effects discussed thoroughly . She was encouraged to make sure she does not take the tizanidine anymore with the robaxinShe will begin hydrocodon e 5 mg - acetaminop hen 325mg every 4-6 hours as needed as below; side effects discussed thoroughly and she was encouraged to use this medicine sparingly for moderate to severe painEncour aged intermitte nt heat as neededReco mmended lidocaine patches OTC as neededShe can use muscle rubs with massage OTC as needed, including bengay, biofreeze, icy hot, etc.She will return to the office for a follow up, or the ER if needed for any new or worsening symptoms [id number] MD [facility] [address] [place] [address] 02/19/2024 14:23:59 02/19/2024 15:10:12 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 Monitoring kidney function. Lantus 30 units daily plus sliding scale insulin, Farxiga Essential hypertension 09389717 I10 Well-contr olled on lisinopril , hydrochlor othiazide. Chronic ki dney disease stage 3A 143714009 N18.31 Alzheimer's disease 2692 9004 G30.9 stable on donepezil, memantine New daily persistent headache 3353110499 72238 G44.52 These have improved considerab ly. Neck pain 98953694 M54.2 She is still having some neck pain but had some therapy done with a chiropract or. Manipulati on was not part of the therapy. She denies any headache or stiffness in the neck today. 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 I will forward my lab results to the nephrologi st, as well. Unfortunat isreal, her has not been able to get her to complete a 24-hour urine collection . Alzheimer's disease 2692 9004 G30.9 stable on donepezil, memantine Type 2 kyle betes mellitus 07903817 E11.3293 E11.22 Regular follow-up with ophthalmol ogy. Monitoring kidney function. Lantus 30 units daily plus sliding scale insulin, Farxiga Toxic mult inodular goiter 81002906 E05.20 Dr. Gonzalez. She has an appointmen t with him in a month or so. Polyp of colon 32981249 K63.5 Had further treatment Angélic[facility] in Fall of . I do not have those records. [id number] DOUGLAS SCHAFER MD _[facility] [address] [facility] [place] [address] 08/27/2024 10:07:24 08/27/2024 11:05:37 Polyp of colon 51986939 K63.5 Had further treatment at [place] in Fall of 2023. I do not have those records. 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 Also followed by nephrology . Toxic mult inodular goiter 80359012 E05.20 Dr. Gonzalez. Alzheimer's disease 2692 9004 G30.9 stable on donepezil, memantine Cerebral atrophy 4549704 00 G31.9 Unchanged Type 2 kyle betes mellitus 19078859 E11.3293 E11.22 I am managing her diabetes. Regular follow-up with ophthalmol ogy. Monitoring kidney function. Lantus 30 units daily plus sliding scale insulin, Farxiga Hyperlipidemia 16177845 E78.5 Rosuvastat in Essential hypertension 84031034 I10 Well-contr olled on lisinopril , hydrochlor othiazide. Obstructiv e sleep apnea syndrome 40148544 G47.33 stable Aphasia 05994516 R47.01 improved [id number] DOUGLAS SCHAFER MD [facility] [address] [place] [address] 08/29/2024 14:07:06 08/29/2024 14:45:57 Pain of right shoulder joint 5687896908 3712367 M25.511 Essentiall y normal examinatio n in the office today. She can continue using a heating pad for 20 minutes every hour as needed. Otherwise, Tylenol or topical pain relieving cream should be fine. Health Concerns Section Related Observation LastModified by Organization Detai ls LastModified Time None Recorded Concern Status LastModified by Organization Details LastModified Time None Recorded Advance Directives Directive None Recorded Payers Insurance Date Sequence Insurance Name Policy Number Policy Aly Covered Member ID Aly Member ID Guarantor Name 03/02/2023 [facility] - *CENTRAL USE ONLY* Sophie Bass [id number] Sophie Bass 09/03/2024 1 [employer] - GOLD PLUS (MEDICARE REPLACEMENT/A DVANTAGE - HMO) Sophie Bass [id number] Sophie Bass Notes Date Note Type Note Provider Name and Address Organization Details Recorded Time 02/12/2024 text/html ROS as noted in the HPI She presents today with her for ongoing daily headaches and neck pain/stiffness since around 02/07; about 2 weeks now. The pain is so bad in her neck sometimes that she cannot lift her head off of her pillow. Her reports that it took him over an hour to help her get out of bed this morning because of her neck pain and headache. She went to the ER at [facility] on 02/08 for the headache and neck pain, mostly along the sides of her neck and worse on the left side, but no imaging was completed and she was discharged back home and told to follow up with her PCP for a hydrocodone prescription. She has an appointment with a chiropractor tomorrow, Dr. Julien. She does have limited ROM of her neck and is unable to look from side to side.Her did send a portal message earlier this morning requesting a referral to neurology for the daily headaches and reported that she has been hallucinating with her headaches over the last week. He was told to bring her in for an appointment first. The patient denies audiovisual hallucinations and acute visual changes; however, she does have dementia and is confuses at baseline. She has continued to eat and drink well. Her would like a prescription for hydrocodone for her to take as needed today. She and her both deny falls, fevers, chills, unilateral weakness, unilateral numbness/tingling, nausea, vomiting, abdominal pain, speech problems, facial drooping, and all urinary symptoms. DOUGLAS SCHAFER MD [address], [place], [address], [facility] 02/15/2024 06:47:52 02/19/2024 text/html Presents today for routine follow-up on chronic problems listed below. She is accompanied by her . He indicates persistent symptoms of fluctuation of blood sugars but no significant lows. It turns out that he will often give her the NovoLog pen to give herself her short acting insulin whenever she has a snack and he has noted that she will frequently take the pain apart without giving herself the injection. DOUGLAS SCHAFER MD [address], [place], [address], [facility] 02/19/2024 15:12:34 05/27/2024 text/html Presents today for routine follow-up on chronic problems listed below. DOUGLAS SCHAFER MD [address], [place], [address], [facility] 05/27/2024 14:11:16 08/27/2024 text/html She presents today for an evaluation and follow-up on her general health. She is accompanied by her today who provides most of the history. DOUGLAS SCHAFER MD [address], [place], [address], [facility] 08/27/2024 11:01:16 08/29/2024 text/html ROS as noted in the HPI She presents today, accompanied by her . She had fallen over a week and a half ago, onto her right side. She had minimal injuries at the time with just a small scrape on her elbow. When I saw her a few days ago for her annual wellness visit she was not having any issues. Her states that she was fully active with the arm yesterday but woke up this morning complaining of pain in the shoulder and wrist and was not using the arm much. He had a dose of methocarbamol that he gave her earlier today and she seems to have responded to this. No other associated symptoms. DOUGLAS SCHAFER MD [address], [place], [address], [facility] 08/29/2024 14:40:47 OBGyn Episode No OBEpisode recorded.
--- OUTSIDE RECORDS SUMMARY | 2024-11-22 22:47 | XMS_ITS | Data Portability ---
Author Organization [place] - [facility] [place] Address [address] [address] Care Team Providers [employer] Salesperson Name Role Phone DOUGLAS SCHAFER Primary Care Provider [phone] Assessment No assessment recorded. Plan of Treatment Reminders Order Date Submit Date Provider Last Modified By Organization Details Last Modified Time Details Appointments *Follow-u p 15 2024 10:45A Apolinar PANIAGUA MD Not available Not available Not available Lab CBC w/ auto diff 2023 024 [employer] [facility], [address], [place], [address], 11/27/2023 22:00:14 CMP, serum or plasma 2023 024 [employer] [facility], [address], [place], [address], 11/27/2023 22:00:14 Referral surgery center referral - Dr. Ottoniel Sterling. 2023 024 [email or web address] 12 [facility], [address] [facility], [place], [address], 10/01/2024 13:38:32 Procedures colonosco py procedure (PROC) 2023 024 [email or web address] 71 [facility] - [place] Scheduling, [address] [place], [address], 01/04/2024 11:46:02 Surgeries None recorded. Imaging None recorded. Medication Orders Dulcolax (bisacody l) 5 mg tablet,de layed release 2023 024 Not available 01/15/2024 13:32:53 Miralax 17 gram/dose oral powder 2023 024 Not available 01/15/2024 13:33:02 Plenvu 140 gram-9 gram-5.2 gram powder packs [email or web address], [address] [facility], [place], [address], 01/04/2024 10:59:10 Patient TargetsNo targets recorded. Patient InstructionsNo instructions recorded. Reason for Referral Surgery Center Referral for Villous adenomatous polyp of colon Dr. Ottoniel Sterling. Referring Physician: Fiorella Robertson, Gastroenterology, Encounter Date: 01/04/2024 Results Created Date Observation Date Name Description Value Unit Range Abnormal Flag Note LastModifiedBy Organization Detail LastModifiedTime 11/27/19 24 11/27/2023 COMPR EHENS PARAM METAB OLIC PANEL glucose 178 mg/dL 70-110 high Not Available [facility] [facility] [address] [place], [address], 11/27/2023 22:00:14 11/27/19 24 11/27/2023 COMPR EHENS PARAM METAB OLIC PANEL BUN 32 mg/dL 5-26 high Not Available [facility] [address] [place], [address], 11/27/2023 22:00:14 11/27/19 24 11/27/2023 COMPR EHENS PARAM METAB OLIC PANEL creatinine 1.49 mg/dL 0.50-1 .30 high Not Available [facility] [address] [place], [address], 11/27/2023 22:00:14 11/27/19 24 11/27/2023 COMPR EHENS PARAM METAB OLIC PANEL eGFR non 35 mL/mi n/1.7 3m >=[address] [facility] [address] [place], [address], 11/27/2023 22:00:14 11/27/19 24 11/27/2023 COMPR EHENS PARAM METAB OLIC PANEL eGFR 40 mL/mi n/1.7 3m >=[address] [facility] [address] [place], [address], 11/27/2023 22:00:14 11/27/19 24 11/27/2023 COMPR EHENS PARAM METAB OLIC PANEL BUN/creatini ne ratio 21 mmol/ L 6-22 Not Available [facility] [employer] [facility] [address] [place] [address], [address], 11/27/2023 22:00:14 11/27/19 24 11/27/2023 COMPR EHENS PARAM METAB OLIC PANEL sodium 142 mmol/ L 138-[address] [facility] [address] [place] [address], [address], 11/27/2023 22:00:14 11/27/19 24 11/27/2023 COMPR EHENS PARAM METAB OLIC PANEL potassium 4.7 mmol/ L 3.5-5. [address] [facility] [address] [place] [address], [address], 11/27/2023 22:00:14 11/27/19 24 11/27/2023 COMPR EHENS PARAM METAB OLIC PANEL chloride 108.0 mmol/ L 98.0-[address] [facility] [address] [place] [address], [address], 11/27/2023 22:00:14 11/27/19 24 11/27/2023 COMPR EHENS PARAM METAB OLIC PANEL carbon dioxide 29 mmol/ L 22-33 Not Available [facility] [employer] [facility] [address] [place] [address], [address], 11/27/2023 22:00:14 11/27/19 24 11/27/2023 COMPR EHENS PARAM METAB OLIC PANEL calcium 9.0 mg/dL 8.5-[address] [facility] [address] [place], [address], 11/27/2023 22:00:14 11/27/19 24 11/27/2023 COMPR EHENS PARAM METAB OLIC PANEL total protein 6.7 g/dL 6.1-8. [address] [facility] [address] [place], [address], 11/27/2023 22:00:14 11/27/19 24 11/27/2023 COMPR EHENS PARAM METAB OLIC PANEL albumin 3.7 g/dL 3.5-5. [address] [facility] [address] [place], [address], 11/27/2023 22:00:14 11/27/19 24 11/27/2023 COMPR EHENS PARAM METAB OLIC PANEL globulin 3.0 g/dL 1.9-3. [address] [facility] [address] [place] [address], [address], 11/27/2023 22:00:14 11/27/19 24 11/27/2023 COMPR EHENS PARAM METAB OLIC PANEL A/G ratio 1.2 1.0-2. [address] [facility] [address] [place] [address], [address], 11/27/2023 22:00:14 11/27/19 24 11/27/2023 COMPR EHENS PARAM METAB OLIC PANEL bilirubin, total 0.4 mg/dL 0.2-1. 0 Not Available [facility] [employer] [facility] [address] [place] [address], [address], 11/27/2023 22:00:14 11/27/19 24 11/27/2023 COMPR EHENS PARAM METAB OLIC PANEL alkaline phosphatase 109 IU/L 50-136 Not Available [employer] [facility] [address] [place] [address], [address], 11/27/2023 22:00:14 11/27/19 24 11/27/2023 COMPR EHENS PARAM METAB OLIC PANEL AST 12 IU/L 15-37 low Not Available [employer] [facility] [address] [place] [address], [address], 11/27/2023 22:00:14 11/27/19 24 11/27/2023 COMPR EHENS PARAM METAB OLIC PANEL ALT 13 IU/L 13-61 Not Available [employer] [facility] [address] [place] [address], [address], 11/27/2023 22:00:14 11/27/19 24 11/27/2023 COMPR EHENS PARAM METAB OLIC PANEL ion balance 5 mmol/ L 5-15 Not Available [employer] [facility] [address] [place] [address], [address], 11/27/2023 22:00:14 11/27/19 24 11/27/2023 COMPR EHENS PARAM METAB OLIC PANEL osmolality blood, calculated 305 mOsm/ kg 270-30 0 high Not Available [employer] [facility] [address] [place] [address], [address], 11/27/2023 22:00:14 11/27/19 24 11/27/2023 CBC (H/H, RBC, INDIC ES, WBC, PH) white blood cell count 6.0 x10 3.7-10 .7 Not Available [employer] [facility] [address] [place] [address], [address], 11/27/2023 22:00:14 11/27/19 24 11/27/2023 CBC (H/H, RBC, INDIC ES, WBC, PH) red blood cell count 4.27 mill/ uL 3.40-5 .30 Not Available [facility] [address] [place] [address], [address], 11/27/2023 22:00:14 11/27/19 24 11/27/2023 CBC (H/H, RBC, INDIC ES, WBC, PH) hemoglobin 11.2 g/dL 11.4-1 5.8 low Not Available [facility] [address] [place] [address], [address], 11/27/2023 22:00:14 11/27/19 24 11/27/2023 CBC (H/H, RBC, INDIC ES, WBC, PH) hematocrit 34.4 % 34.0-4 7.0 Not Available [facility] [address] [place] [address], [address], 11/27/2023 22:00:14 11/27/19 24 11/27/2023 CBC (H/H, RBC, INDIC ES, WBC, PH) MCV 81 fL 80-97 Not Available [facility] [address] [place] [address], [address], 11/27/2023 22:00:14 11/27/19 24 11/27/2023 CBC (H/H, RBC, INDIC ES, WBC, PH) MCH 26 pg/mL 26-33 Not Available [facility] [address] [place] [address], [address], 11/27/2023 22:00:14 11/27/19 24 11/27/2023 CBC (H/H, RBC, INDIC ES, WBC, PH) MCHC 32 g/dL 33-36 low Not Available [facility] [address] [place] [address], [address], 11/27/2023 22:00:14 11/27/19 24 11/27/2023 CBC (H/H, RBC, INDIC ES, WBC, PH) RDW 15.1 % 11.5-1 6.0 Not Available [facility] [address] [place] [address], [address], 11/27/2023 22:00:14 11/27/19 24 11/27/2023 CBC (H/H, RBC, INDIC ES, WBC, PH) platelet count 238 x10 130-[address] [facility] [address] [place] [address], [address], 11/27/2023 22:00:14 11/27/19 24 11/27/2023 CBC (H/H, RBC, INDIC ES, WBC, PH) MPV 8.0 fL 7.5-[address] [facility] [address] [place] [address], [address], 11/27/2023 22:00:14 11/27/19 24 11/27/2023 CBC (H/H, RBC, INDIC ES, WBC, PH) neut % auto 66 % 50-[address] [facility] [address] [place] [address], [address], 11/27/2023 22:00:14 11/27/19 24 11/27/2023 CBC (H/H, RBC, INDIC ES, WBC, PH) lymph % auto 22 % 20-[address] [facility] [address] [place] [address], [address], 11/27/2023 22:00:14 11/27/19 24 11/27/2023 CBC (H/H, RBC, INDIC ES, WBC, PH) mono % auto 7 % <=[address] [facility] [address] [place] [address], [address], 11/27/2023 22:00:14 11/27/19 24 11/27/2023 CBC (H/H, RBC, INDIC ES, WBC, PH) eos % auto 3 % 0-[address] [facility] [address] [place] [address], [address], 11/27/2023 22:00:14 11/27/19 24 11/27/2023 CBC (H/H, RBC, INDIC ES, WBC, PH) baso % auto 1 % 0-[address] [facility] [address] [place] [address], [address], 11/27/2023 22:00:14 11/27/19 24 11/27/2023 CBC (H/H, RBC, INDIC ES, WBC, PH) neut # auto 4.0 x10 1.4-7. [address] [facility] [address] [place] [address], [address], 11/27/2023 22:00:14 11/27/19 24 11/27/2023 CBC (H/H, RBC, INDIC ES, WBC, PH) lymph# auto 1.4 x10 1.2-3. [address] [facility] [address] [place] [address], [address], 11/27/2023 22:00:14 11/27/19 24 11/27/2023 CBC (H/H, RBC, INDIC ES, WBC, PH) mono# auto 0.4 x10 0.0-1. [address] [facility] [address] [place] [address], [address], 11/27/2023 22:00:14 11/27/19 24 11/27/2023 CBC (H/H, RBC, INDIC ES, WBC, PH) eos# auto 0.2 x10 <=0.[address] [facility] [address] [place] [address], [address], 11/27/2023 22:00:14 11/27/19 24 11/27/2023 CBC (H/H, RBC, INDIC ES, WBC, PH) baso# auto 0.1 x10 0.0-0. [address] [facility] [address] [place] [address], [address], 11/27/2023 22:00:14 12/28/19 24 12/28/2023 GLUCO SE LEVEL POC BEDSI DE glu POC bdside 164 mg/dL 70-100 high Sampl e Type: NONE; Opera tor ID: [id number] Not Available [facility] (Lab) [address], [place], [address], 12/28/2023 11:22:03 12/28/19 24 12/29/2023 TISSU E PATHO LOGY clinical information Opera tion/ Proce dure: Colon oscop y Preop erati ve Diagn osis: Posit param Colog uard Posto perat param Diagn osis: Cecal mass, polyp Not Available [facility] [address] [place], [address], 12/29/2023 10:16:41 12/28/19 24 12/29/2023 TISSU E PATHO LOGY pathologist Ashley Whitaker M.D., Board Certi fied in Anato won Patho logy, Clini ira Patho logy and Cytop athol ogy (elec troni c signa ture) [facility] Not Available [facility] [address] [place], [address], 12/29/2023 10:16:41 12/28/19 24 12/29/2023 TISSU E PATHO LOGY A source Colon , cecum , biops y: Not Available [employer] [facility] [address] [place], [address], 12/29/2023 10:16:41 12/28/19 24 12/29/2023 TISSU E PATHO LOGY A gross description Recei dwain in 10% Neutr al Buffe red Forma laz label ed with the patie nt's name and ceca l mass BX consi sts of one, 0.4 cm irreg ular soft tissu e fragm ent(s ). The speci men is submi tted in toto in one casse tte. Gross exam( s) perfo rmed at: [facility] [address], [place] [address] Labor atory Direc tor: BIRGIT PEOPLES MD Not Available [facility] [address] [place], [address], 12/29/2023 10:16:41 12/28/19 24 12/29/2023 TISSU E PATHO LOGY A diagnosis - Villo us adeno ma - Negat param for high- grade dyspl trev Not Available [facility] [address] [place], [address], 12/29/2023 10:16:41 12/28/19 24 12/29/2023 TISSU E PATHO LOGY B source Colon , desce nding , polyp : Not Available [facility] [address] [facility], [place], [address], 12/29/2023 10:16:41 12/28/19 24 12/29/2023 TISSU E PATHO LOGY B gross description Recei dwain in 10% Neutr al Buffe red Forma laz label ed with the patie nt's name and desc endin g colon polyp consi sts of one, 0.8 cm irreg ular soft tissu e fragm ent(s ). The speci men is submi tted in toto in one casse tte. (AD) Not Available [facility] [address] [place], [address], 12/29/2023 10:16:41 12/28/19 24 12/29/2023 TISSU E PATHO LOGY B diagnosis - Tubul ar adeno ma - Negat param for high- grade dyspl trev Not Available [facility] [address] [place], [address], 12/29/2023 10:16:41 12/28/19 24 12/29/2023 TISSU E PATHO LOGY copy received from: [facility] [address] [place] [address] Not Available [facility] [address] [place], [address], 12/29/2023 10:16:41 Result Notes None recorded. Problems Name Problem SNOMED Code Status Onset Date Resolution Date Notes Provider Name and Address Organization Details Recorded Time Colorectal cancer detected by DNA-based stool screening 021024862 Active 2023 FIORELLA ROBERTSON NP [address] [facility] [address], [place], [address], [address] 4 10:34:45 Constipation 41553343 Active 2023 FIORELLA ROBERTSON NP [address] [facility] [address], [place], [address], [address] 11:46:54 Villous adenomatous polyp of colon 941614930 Active 2023 FIORELLA ROBERTSON NP [address] [facility] [address], [place], [address], [address] 11:15:58 Notes:Some problems listed i n Document: #[id number] could not be added to this patient's chart. Please review this document and add these problems to the patient's chart manually as needed. Problem Notes None recorded. Procedures Surgical History Date Name Laterality Status Provider Name and Address Organization Details Recorded Time arthroplasty of knee completed MÓNICA Wheatley [address] 11/27/2023 11:34:10 Imaging Results None recorded. Procedure Notes None recorded. Medical Equipment None Reported. Allergies Allergen ID Allergen Name Allergen Category Reaction Reaction Severity Criticality Documentation Date Start Date Code Code System Note Provider Name and Address Organization Details Recorded Time 666279 Product containin g penicilli n (product) medicatio n Not available Not available Not available 11/27/20232018 92235 8001 EVERTON Boucher MA [address] 4 10:56:42 Medications Name Sig Start Date Stop Date Status Note LastModified by Organization Details LastModified Time Miralax 17 gram/dose oral powder Take per GI instructi ons 01/03 completed Not Available Not Available Not Available metformin 500 mg tablet TAKE TWO TABLETS BY MOUTH 2 TIMES A DAY 11/26 completed Not Available Not Available Not Available fluconazole 150 mg tablet TAKE ONE TABLET EVERY 72 HOURS DIRECTED 01/03 completed Not Available Not Available Not Available hydrocodone 5 mg-acetamin ophen 325 mg tablet TAKE ONE TABLET BY MOUTH EVERY 6 HOURS NEEDED FOR PAIN active Not Available Not Available No t Available donepezil 10 mg tablet TAKE 1 TABLET BY MOUTH DAILY WITH FOOD active Not Available Not Available No t Available lisinopril 20 mg tablet TAKE ONE TABLET BY MOUTH DAILY active Not Available Not Available No t Available metronidazo le 500 mg tablet TAKE ONE TABLET BY MOUTH EVERY 8 HOURS FOR 7 DAYS 01/03 completed Not Available Not Available Not Available ciprofloxac in 500 mg tablet TAKE ONE TABLET BY MOUTH EVERY 12 HOURS FOR 7 DAYS 01/03 completed Not Available Not Available Not Available famotidine 20 mg tablet TAKE ONE TABLET BY MOUTH 2 TIMES A DAY as needed 01/03 completed Not Available Not Available Not Available methimazole 5 mg tablet TAKE ONE TABLET BY MOUTH EVERY DAY active Not Available Not Available No t Available docusate sodium 100 mg capsule TAKE 1 CAPSULE BY MOUTH TWICE DAILY NEEDED FOR CONSTIPAT ION 01/03 completed Not Available Not Available Not Available sertraline 25 mg tablet TAKE ONE TABLET BY MOUTH EVERY DAY active Not Available Not Available No t Available ondansetron 4 mg disintegrat ing tablet TAKE ONE TABLET BY MOUTH 3 TIMES A DAY FOR 7 DAYS 01/03 completed Not Available Not Available Not Available Dulcolax (bisacodyl) 5 mg tablet,danielle yed release Take 4 tablets every day by oral route as directed. 01/03 completed Not Available Not Available Not Available Novolog FlexPen U-100 Insulin aspart 100 unit/mL (3 mL) subcutaneou s USE UP TO 4 TIMES DAILY NEEDED PER SLIDING SCALE. MAXIMUM DAILY DOSE 100 UNITS. active Not Available Not Available No t Available rosuvastati n 40 mg tablet TAKE ONE TABLET BY MOUTH EVERY DAY active Not Available Not Available No t Available memantine 10 mg tablet 1 tab bid active Not Available Not Available No t Available Lantus Solostar U-100 Insulin 100 unit/mL (3 mL) subcutaneou s pen 30 units per day active Not Available Not Available No t Available Farxiga 10 mg tablet TAKE ONE TABLET BY MOUTH EVERY DAY FOR DIABETES. active Not Available Not Available No t Available naloxone 4 mg/actuatio n nasal spray INSTILL INTRANASA LLY ONCE active Not Available Not Available No t Available Plenvu 140 gram-9 gram-5.2 gram powder packs TAKE BOWEL PREP PER THE GI OFFICE INSTRUCTI ONS. 01/03 completed Not Available Not Available Not Available [employer] 2 [address] USE DIRECTED. 01/03 completed Not Available Not Available Not Available Vitals Date Recorded Body weight Systolic And Diastolic Provider Name and Address Organization Details Last Updated DateTime 11/27/2023 67774.78 g 134/70 mm[Hg] MÓNICA Wheatley [address] 11/27/2023 11:30:27 Date Recorded Body weight Body mass index (BMI) Body height Systolic And Diastolic Provider Name and Address Organization Details Last Updated DateTime 01/04/2024 53988.03 g 33.2 kg/m2 167.64 cm 130/70 mm[Hg] Jennifer Boucher MA [address] 01/04/2024 10:56:33 Social History Question Answer Notes LastModified by Organizat ion Details LastModified Time Tobacco Smoking Status Never Smoker MÓNICA Wheatley null, [address] 11/27/2023 11:33:36 What Is Your Level Of Caffeine Consumption? Moderate Information not available 11/27/2023 What Was The Date Of Your Most Recent Tobacco Screening? 01/04/2024 [email or web address] Information not available 01/04/2024 Sex: Unknown Functional Status Question Answer Note LastModified by Organizat ion Details LastModified Time Do you use any illicit or recreational drugs? No Information not available 11/27/2023 What is your level of alcohol consumption? None Information not available 11/27/2023 Mental Status None recorded. Family History Relationship Description Onset Age of this Age Resolved Age Notes LastModified by Organization Details LastModified Time Mother Dementia Not availabl e 11/27/2023 11:33:07 Father Malignant neoplasm of brain Not available 2023 11:33:27 Medical History Condition Response Hypothyroidism Y Hyperlipidemia Y Hypertension Y Gynecological HistoryNo gynecological history recorded. Obstetrics History GPAL:G 0 P 0 0 0 0 Past Encounters Encounter ID Performer Location Encounter Start Date Encounter Closed Date Diagnosis/Indication Diagnosis SNOMED-CT Code Diagnosis ICD10 Code Diagnosis Note [id number] FIORELLA ROBERTSON NP [facility] [address] [place] [address] 11/27/2023 11:14:34 11/27/2023 12:30:33 Colorectal cancer detected by DNA-based stool screening 377899132 R19.5 Per referral (+) cologuard 09/2023. Has a lot of constipati on. Uses an herbal tea to help move bowels. Does not take an fiber supplement . Has tried Miralax but endorses it does not work as well. Describes stool as BSS#1. Strains most of the time to have a BM. Denies rectal pain with BMs. Denies blood with BM's. Denies N/V, abd pain. Pt denies any alarm symptoms including rectal bleeding, anemia, changes in caliber of stool or bowel pattern, unintentio nal weight loss. No FH of colon cancer.No PH of IBD.Not on any blood thinners.N ever had a colonoscop y.Will order colonoscop y for further diagnositi c clarity.Keene s CKD III. Will order low volume prep. Constipation 05031004 K5 9.00 -Increase Fiber intake -Apples, pears, broccoli, carrots, squash, baked beans, kidney beans, and nicolas beans are a few examples of high-fiber foods. -Increase daily water intake -Monitor stools for blood-Add daily soluble fiber supplement 25-35 grams/day (e.g. Metamucil or Benefiber) [id number] FIORELLA ROBERTSON NP [facility] [address] [place] [address] 01/04/2024 10:43:07 01/04/2024 11:45:25 Villous adenomatous polyp of colon 113782619 D12.6 Colonoscop y showed a tumor in the cecum as well as a 10 mm polyp in the descending colon. Colonoscop y 12/28/2023: Tumor in the cecum. Biopsied. One 10 mm, non-bleedi ng polyp in the descending colon, removed with a cold snare. Resected and retrieved. Pathology: Colon, cecum, biopsy: Villous adenoma. Negative for high-grade dysplasia Colon, descending , polyp: Tubular adenoma. Negative for high-grade dysplasia. Long discussion with the patient, her daughter, Oma and with the patient's . Also spoke to Dr. Paniagua and he recommende d if ESD is chosen to refer to [place], Dr. Ottoniel Sterling. They have decided they want to be referred to [facility] for ESD of tumor. Dr. Paniagua aware. Daughter Oma Patino: . Health Concerns Section Related Observation LastModified by Organization Detai ls LastModified Time None Recorded Concern Status LastModified by Organization Details LastModified Time None Recorded Advance Directives Directive None Recorded Payers Insurance Date Sequence Insurance Name Policy Number Policy Aly Covered Member ID Aly Member ID Guarantor Name 01/08/2024 1 [employer] - GOLD PLUS (MEDICARE REPLACEMENT/A DVANTAGE - HMO) Sophie Bass [id number] Sophie Bass Notes Date Note Type Note Provider Name and Address Organization Details Recorded Time 11/27/2023 text/html This is a y.o. female who presents for a colonoscopy screening after positive cologuard 09/2023. present for visit. PMH includes: T2DM, CKD III, Headache, Eczema, Retinopathy, Chronic constipation, HLD, HTN, Obesity, JUJU, Anosognosia, Alzheimer's Disease, Dementia. Has a lot of constipation. Uses an herbal tea to help move bowels. Does not take an fiber supplement. Has tried Miralax but endorses it does not work as well. Describes stool as BSS#1. Strains most of the time to have a BM. Denies rectal pain with BMs. Denies blood with BM's. Denies N/V, abd pain. Pt denies any alarm symptoms including rectal bleeding, anemia, changes in caliber of stool or bowel pattern, unintentional weight loss. No FH of colon cancer.No PH of IBD.Not on any blood thinners.Never had a colonoscopy. FIORELLA ROBERTSON, HARITHA [address], [place], [address], [place] [address]2024 11:56:09 01/04/2024 text/html Ms Bass presents for follow-up to discuss screening colonoscopy results after positive Cologuard 09/2023. Colonoscopy showed a tumor in the cecum as well as a 10 mm polyp in the descending colon. Denies any LGIS. Colonoscopy 12/28/2023:Tumor in the cecum. Biopsied.One 10 mm, non-bleeding polyp in the descending colon, removed with a cold snare. Resected and retrieved. Pathology:Colon, cecum, biopsy: Villous adenoma. Negative for high-grade dysplasiaColon, descending, polyp: Tubular adenoma. Negative for high-grade dysplasia. Will discuss ESD versus surgery pending biopsy. FIORELLA ROBERTSON, HARITHA [address] [place] [address], [place], [address], [place] - [facility] [place] 01/04/2024 13:20:25 OBGyn Episode No OBEpisode recorded.
--- OUTSIDE RECORDS SUMMARY | 2024-11-22 22:47 | XMS_ITS | Clinical Summary ---
Author Organization [facility] Facility Address [address] [place] [address] Care Team Providers Care Record Librarian Name Role Phone Jori Spencer MD Primary Care Provider [phone] Allergies Active Allergy Reactions Criticality Noted Date Comments Penicillins 03/06/2023 Medications * This document contains information received from the source organization and may not represent a complete record from that organization. donepezil (ARICEPT) 10 MG tablet Take 10 mg by mouth every night Active insulin glargine (LANTUS) 100 UNIT/ML injection Inject 30 Units under the skin every night Active lisinopril 20 MG tablet Take 20 mg by mouth 1 (one) time each day Active memantine (NAMENDA) 10 MG tablet Take 10 mg by mouth in the morning and 10 mg in the evening. Active methIMAzole (TAPAZOLE) 5 MG tablet Take 5 mg by mouth 1 (one) time each day Active insulin aspart (NovoLOG FLEXPEN) 100 UNIT/ML injection Inject under the skin 4 (four) times a day if needed for high blood sugar Sliding scale Active rosuvastatin (CRESTOR) 40 MG tablet Take 40 mg by mouth 1 (one) time each day Active Farxiga 10 MG tablet TAKE ONE TABLET BY MOUTH EVERY DAY FOR DIABETES. 10/16/2023 Active docusate sodium (COLACE) 100 MG capsule Take 100 mg by mouth in the morning and 100 mg in the evening. Active Active Problems Problem Noted Date Diagnosed Date Chronic kidney disease stage 3B 11/06/2023 Hypoechoic nodule 11/06/2023 Overview (11/06/2023): 6mm hyperechoic nodule noted cortex of right kidney on 03/02/23 ultrasound Acute kidney failure, not otherwise specified Chronic kidney disease stage 3A 05/03/2023 Hypertension 05/03/2023 Type 2 diabetes mellitus wit h complication, not otherwise specified 05/03/2023 Proteinuria 03/01/2023 Family History Medical History Relation Comments Cancer Father Heart disease Father Dementia Mother Diabetes Mother Relation Status Comments Father (Age 77) Mother (Age 81) Social History Tobacco Use Types Packs/Day Years Used Date Smoking Tobacco: Never Smokeless Tobacco: Never Tobacco Cessation:Counseling Given: Not Answered Alcohol Use Standard Drinks/Week Comments Never 0 (1 standard drink = 0.6 oz pur e alcohol) Comments Unknown Sex and Gender Information Value Date Recorded Sex Assigned at Not on file Legal Sex Female 9:30 AM EST Gender Identity Not on file Sexual Orientation Not on file Last Filed Vital Signs Vital Sign Reading Time Taken Comments Blood Pressure 138/78 08/13/2024 2:54 PM EDT Pulse 73 05/09/2024 2:25 PM EST Temperature - - Respiratory Rate - - Oxygen Saturation 94% 05/09/2024 2:25 PM EST Inhaled Oxygen Concentration - - Weight 93.4 kg (206 lb) 08/13/2024 2:54 PM EDT Height 167.6 cm (5' 6) 08/13/2024 2:54 PM EDT Body Mass Index 33.25 08/13/2024 2:54 PM EDT Plan of Treatment Upcoming Encounters Date Type Department Care Team (Late st Contact Info) Description 02/07/2025 2:00 PM EDT Clinical Support [facility] [address] [place] [address] 02/14/2025 2:00 PM EDT [facility] [address] [place] [address] Lorie Solomon, [facility] [address] [place] [address] Health Maintenance Due Date Last Done Comments Breast Cancer Screening 1950 Colorectal Cancer Screening: Annual FOBT 09/12/2000 Colorectal Cancer Screening: Colonoscopy 09/12/2000 Colorectal Cancer Screening: Sigmoidoscopy 09/12/2000 Pneumococcal Vaccine: 50+ Years (3 of 3 - PCV20 or PCV21) 10/29/2018 07/19/2018, 10/29/2013 Diabetes: Ophthalmology Exam 03/06/2023 Diabetes: Pedal Pulse Checked 03/06/2023 Diabetes: Sensory Foot Exam 03/06/2023 Diabetes: Visual Foot Exam 03/06/2023 Diabetes: Hemoglobin A1C 05/21/2024 02/19/2024 Influenza Vaccine (#1) 2024 , 01/31/2020, 01/28/2018, Additional history exists Hepatitis B Vaccine Aged Out No longe r eligible based on patient's age to complete this topic Procedures Procedure Name Priority Date/Time Associated Diagnosis Comments EXT RESULT ENTRY Routine 02/19/2024 8:02 AM EDT from Last 3 Months or Most Recently Relevant to Health Maintenance Results * (ABNORMAL) EXT RESULT ENTRY (02/19/2024 8:02 AM EDT) Sodium 140 137 - 147 Potassium 4.3 3.4 - 5.5 Chloride 101.0 99.0 - 108.0 Carbon Dioxide 29 mmol/L Glucose 207(A) 60 - 200 BUN 24(A) 4 - 21 mg/dL Creatinine 1.49(A) 0.50 - 1.10 mg/dL Albumin 4.0 3.5 - 5.0 g/dL Calcium 9.2 8.7 - 10.7 mg/dL Phosphorus, Serum 4.0 eGFR CKD-EPI CR 2020 37 mL/min/1.7 3m*2 Hemoglobin A1C 7.4(A) 4.0 - 6.0 Creatinine, Urine Random 71 mg/dL Microalbumin Urine Random (External Result Entry) 444 Microalb/Creat Ratio, Ur 627 Aps External Provider LAB BLOOD ORDERABLES Edite d Result - Final from Last 3 Months or Most Recently Relevant to Health Maintenance Insurance [employer] Care Teams Record Librarian Relationship Specialty Start Date End Date Jori Spencer MD [address] [place] [address] PCP - General Family Medicine 03/06/23
--- NOTE | 2024-11-22 22:50 | ED_ITS ---
HPI - Fall General Chief Complaint: Fall <Shahrzad Catherine PA-C - Last Filed: 11/23/24 02:03> Stated Complaint: Fall off 1 step/Rknee/hip pain <HAM Brannon Last Filed: 11/23/24 02:03> Time Seen by Provider: 11/22/24 21:16 <Shahrzad Catherine PA-C - Last Filed: 11/23/24 02:03> Source: patient, family and EMS <Shahrzad Catherine PA-C - Last Filed: 11/23/24 02:03> Mode of arrival: EMS <HAM Brannon Last Filed: 11/23/24 02:03> Limitations: dementia <HAM Brannon Last Filed: 11/23/24 02:03> History of Present Illness HPI Narrative: This is a 74-year-old female that presents to the emergency department after a fall today with right leg injury. Patient missed a step walking into a sunken living room. Fell forward. She did not hit her head or lose consciousness. This was a witnessed fall by family. Patient presents with right hip/leg pain. <HAM Brannon Last Filed: 11/23/24 02:03> Related Data Allergies/Adverse Reactions: Allergies Allergy/AdvReac Type Severity Reaction Status Date / Time No Known Allergies Allergy Verified 11/22/24 21:00 <HAM Brannon Last Filed: 11/23/24 02:03> Review of Systems 2 Review of Systems: All systems reviewed & are unremarkable except as noted in HPI and below <HAM Brannon Last Filed: 11/23/24 02:03> PMFSH Past Medical History Medical History: Medical History (Updated 11/24/24 @ 00:00 by Background Daemon) History of hypertension History of hyperlipidemia History of diabetes mellitus History of chronic kidney disease <HAM Brannon Last Filed: 11/23/24 02:03> Exam 2 Narrative: GENERAL: Well-appearing, well-nourished, and in no acute distress. HEAD: Normocephalic, atraumatic. EYES: PERRLA and EOMI. ENT: Nares clear, no rhinorrhea or epistaxis. Mucous membranes moist. Oropharynx without tonsillar hypertrophy exudate or other lesions. Bilateral TMs pearly dao non-bulging NECK: Supple. No adenopathy or masses. CHEST: Clear to auscultation. No respiratory distress. No wheezes rales or rhonchi HEART: Regular rate and rhythm. No murmur heard. Normal peripheral pulses. ABDOMEN: Soft, nontender, nondistended, normal active bowel sounds. EXTREMITIES: Normal range of motion, except decreased active ROM in the right hip/knee. Normal DP pulses. Normal sensation SKIN: Warm, dry, no rash. NEURO: No focal deficits. Alert and oriented x3. 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 Notified the patient did indeed have a fracture, severity of which would warrant transfer after PA had discussed with orthopedic surgeon at [place]. Was therefore available for consultation while patient was in the emergency department but did not physically evaluate them and was not directly involved in their care. <Nancy Barcenas MD - Last Filed: 11/24/24 09:23> Consultations Consultation #1: Spoke with M Dr. Brown with orthopedics. Recommends trasfer to [place]. Spoke with hospitalist about patient and workup who accepts admission. < Shahrzad Catherine PA-C - Last Filed: 11/23/24 02:03> Date: 11/22/24 <Shahrzad Catherine PA-C - Last Filed: 11/23/24 02:03> Vital Signs Vital signs: Vital Signs Temperature 97.5 F L 11/22/24 19:46 Pulse Rate 51 L 11/22/24 19:46 Respiratory Rate 18 11/22/24 19:46 Blood Pressure 154/69 H 11/22/24 19:46 Pulse Oximetry 99 11/22/24 19:46 Oxygen Delivery Room Air 11/22/24 19:46 Temperature 97.5 F L 11/22/24 19:46 Pulse Rate 73 11/23/24 01:55 Respiratory Rate 20 11/23/24 01:55 Blood Pressure 151/63 H 11/23/24 01:55 Pulse Oximetry 97 11/23/24 01:55 Oxygen Delivery Room Air 11/22/24 19:46 <Shahrzad Catherine PA-C - Last Filed: 11/23/24 02:03> Vital Signs Temperature 97.5 F L 11/22/24 19:46 Pulse Rate 51 L 11/22/24 19:46 Respiratory Rate 18 11/22/24 19:46 Blood Pressure 154/69 H 11/22/24 19:46 Pulse Oximetry 99 11/22/24 19:46 Oxygen Delivery Room Air 11/22/24 19:46 Temperature 97.5 F L 11/22/24 19:46 Pulse Rate 73 11/23/24 01:55 Respiratory Rate 20 11/23/24 01:55 Blood Pressure 151/63 H 11/23/24 01:55 Pulse Oximetry 97 11/23/24 01:55 Oxygen Delivery Room Air 11/22/24 19:46 <Nancy Barcenas MD - Last Filed: 11/24/24 09:23> MDM - Fall MDM Narrative Medical decision making narrative: Patient presents to the emergency department after a fall today with short external rotation of the right leg. Patient is afebrile and nontoxic appearing. Her vitals are stable. She is neurologically intact at her baseline. This was a witnessed fall, she did not hit her head or lose consciousness. Blood work significant for creatinine of 1.67, patient does have known history of CKD. No previous blood work for comparison. Chest x-ray without acute cardiopulmonary abnormality. Right femur x-ray shows displaced and angulated distal metaphyseal fracture of the right femur which appears to approach close to but not directly involve the femoral component a right total knee arthroplasty. No acute findings in the hips/pelvis/left femur. Spoke with [facility] Dr. Brown with orthopedics. Recommends transfer to [place]. Spoke with hospitalist about patient and workup who accepts admission. Patient has a bed. Awaiting ambulance transport 02:03 Patient's ambulance has arrived Revised Cardiac Risk Index for Pre-Operative Risk from [email or web address] on 11/22/2024 All calculations should be rechecked by clinician prior to use RESULT SUMMARY: 1 points RCRI Score 1.1 % Risk of major cardiac event INPUTS: High-risk surgery ?> 0 = No History of ischemic heart disease ?> 0 = No History of congestive heart failure ?> 0 = No History of cerebrovascular disease ?> 0 = No Pre-operative treatment with insulin ?> 1 = Yes Pre-operative creatinine >2 mg/dL / 176.8 ?mol/L ?> 0 = No <Shahrzad Catherine PA-C - Last Filed: 11/23/24 02:03> Lab Data Attestation: I reviewed the patient's lab results. <Shahrzad Catherine PA-C - Last Filed: 11/23/24 02:03> Result diagrams: 11/22/24 21:02 11/22/24 21:02 <Shahrzad Catherine PA-C - Last Filed: 11/23/24 02:03> Labs: Lab Results 11/22/24 11/22/24 Range/Units 21:02 21:03 WBC 7.9 (4.5-10.0) K/mm3 RBC 4.28 (4.2-5.4) M/mm3 Hgb 12.3 (12.0-15.0) g/dL Hct 39.0 (37.0-47.0) % MCV 91.1 (80-100) fl MCH 28.7 (26-34) pg MCHC 31.5 L (32-36) g/dl RDW 13.9 (11.5-14.5) % Plt Count 171 (150-375) k/mm3 MPV 9.6 (7.4-10.4) fl Immature Gran % (Auto) 0.6 H (0-0.5) % Neut % (Auto) 78.5 H (45.5-73.1) % Lymph % (Auto) 10.6 L (18.3-44.2) % [place] % (Auto) 8.0 (2.6-8.5) % Eos % (Auto) 1.9 (0-4.4) % Baso % (Auto) 0.4 (0.2-1.2) % Lymph # (Auto) 0.84 L (0.9-3.2) K/mm3 [place] # (Auto) 0.6 (0.1-0.6) K/mm3 Eos # (Auto) 0.2 (0-0.3) K/mm3 Baso # (Auto) 0.0 (0.0-0.1) K/mm3 Abs Immat Gran (auto) 0.05 H (0.00-0.031) K/mm3 Absolute Neuts (auto) 6.2 (1.3-6.7) K/mm3 Absolute Nucleated RBC 0.000 (0.0-0.012) K/mm3 Nucleated RBC % 0.0 (0.0-0.2) % PT 13.4 (11.1-14.7) Seconds INR 1.0 APTT 24.0 (22.3-36.8) Seconds Sodium 133 L (137-145) mmol/L Potassium 4.0 (3.4-5.0) mmol/L Chloride 102 (98-107) mmol/L Carbon Dioxide 28 (22-30) mmol/L Anion Gap 3 L (4-12) mmol/L BUN 37 H (7-17) mg/dL Creatinine 1.67 H (0.7-1.0) mg/dL Estim Creat Clear Calc 32 ml/min Estimated GFR 30 L (59 - ) Glucose 211 H (65-110) mg/dL Calcium 8.6 (8.4-10.2) mg/dL Total Bilirubin 0.3 (0.2-1.3) mg/dL AST 21 (14-36) U/L ALT 11 (6-35) U/L Alkaline Phosphatase 95 (38-126) U/L Total Protein 6.6 (6.3-8.2) g/dL Albumin 4.0 (3.5-5.1) g/dL Blood Type O Negative Antibody Screen Negative <Shahrzad Catherine PA-C - Last Filed: 11/23/24 02:03> Lab Results 11/22/24 11/22/24 Range/Units 21:02 21:03 WBC 7.9 (4.5-10.0) K/mm3 RBC 4.28 (4.2-5.4) M/mm3 Hgb 12.3 (12.0-15.0) g/dL Hct 39.0 (37.0-47.0) % MCV 91.1 (80-100) fl MCH 28.7 (26-34) pg MCHC 31.5 L (32-36) g/dl RDW 13.9 (11.5-14.5) % Plt Count 171 (150-375) k/mm3 MPV 9.6 (7.4-10.4) fl Immature Gran % (Auto) 0.6 H (0-0.5) % Neut % (Auto) 78.5 H (45.5-73.1) % Lymph % (Auto) 10.6 L (18.3-44.2) % [place] % (Auto) 8.0 (2.6-8.5) % Eos % (Auto) 1.9 (0-4.4) % Baso % (Auto) 0.4 (0.2-1.2) % Lymph # (Auto) 0.84 L (0.9-3.2) K/mm3 [place] # (Auto) 0.6 (0.1-0.6) K/mm3 Eos # (Auto) 0.2 (0-0.3) K/mm3 Baso # (Auto) 0.0 (0.0-0.1) K/mm3 Abs Immat Gran (auto) 0.05 H (0.00-0.031) K/mm3 Absolute Neuts (auto) 6.2 (1.3-6.7) K/mm3 Absolute Nucleated RBC 0.000 (0.0-0.012) K/mm3 Nucleated RBC % 0.0 (0.0-0.2) % PT 13.4 (11.1-14.7) Seconds INR 1.0 APTT 24.0 (22.3-36.8) Seconds Sodium 133 L (137-145) mmol/L Potassium 4.0 (3.4-5.0) mmol/L Chloride 102 (98-107) mmol/L Carbon Dioxide 28 (22-30) mmol/L Anion Gap 3 L (4-12) mmol/L BUN 37 H (7-17) mg/dL Creatinine 1.67 H (0.7-1.0) mg/dL Estim Creat Clear Calc 32 ml/min Estimated GFR 30 L (59 - ) Glucose 211 H (65-110) mg/dL Calcium 8.6 (8.4-10.2) mg/dL Total Bilirubin 0.3 (0.2-1.3) mg/dL AST 21 (14-36) U/L ALT 11 (6-35) U/L Alkaline Phosphatase 95 (38-126) U/L Total Protein 6.6 (6.3-8.2) g/dL Albumin 4.0 (3.5-5.1) g/dL Blood Type O Negative Antibody Screen Negative <Nancy Barcenas MD - Last Filed: 11/24/24 09:23> Imaging Data Radiologist's impression: ITS Impressions Femur X-Ray 11/22/24 21:17 IMPRESSION: 1. Displaced and angulated distal metaphyseal fracture of the right femur which appears to approach close to but not directly involve the femoral component of a right total knee arthroplasty. Hip/Pelvis X-Ray 11/22/24 21:17 IMPRESSION: 1. Displaced and angulated distal metaphyseal fracture of the right femur which appears to approach close to but not directly involve the femoral component of a right total knee arthroplasty. Chest X-Ray 11/22/24 21:22 IMPRESSION: 1. No acute cardiopulmonary disease. Femur X-Ray 11/22/24 23:16 IMPRESSION: 1. No acute osseous abnormality. <Shahrzad Catherine PA-C - Last Filed: 11/23/24 02:03> Critical Care Time Critical Care Time Critical Care Time: No <Shahrzad Catherine PA-C - Last Filed: 11/23/24 02:03> Discharge Plan Discharge Clinical Impression: Femur fracture, right <Shahrzad Catherine PA-C - Last Filed: 11/23/24 02:03> Patient Disposition: Acute Care Hospital <Shahrzad Catherine PA-C - Last Filed: 11/23/24 02:03> Condition: Guarded Prognosis <Shahrzad Catherine PA-C - Last Filed: 11/23/24 02:03> Patient Language: Czech <Shahrzad Catherine PA-C - Last Filed: 11/23/24 02:03> Follow-up/Referrals: UNKNOWN,DOCTOR [Primary Care Provider] - <Shahrzad Catherine PA-C - Last Filed: 11/23/24 02:03>
[2024-11-22 23:00] VITALS: BP 141/54; PULSE 61; RESP 18; O2SAT 94
--- NOTE | 2024-11-22 23:11 | PC.NURSE ---
Report to Dandy MATHIS
[2024-11-23 00:36] VITALS: BP 157/62; PULSE 65; RESP 16; O2SAT 97
[2024-11-23 01:55] VITALS: BP 151/63; PULSE 73; RESP 20; O2SAT 97
[2024-11-23] MEDS: MORPHINE SULFATE (*CRX) 4 MG/ML INJ IV PUSH (01:55)
== END 2024-11-23 02:09 | disposition short-term general hospital (02) ==
PROVIDERS: Emergency Medicine; Emergency Provider Physician Assistant
DX: S79.191A Other physeal fracture of lower end of right femur, initial encounter for closed fracture (principal); E11.22 Type 2 diabetes mellitus with diabetic chronic kidney disease; I12.9 Hypertensive chronic kidney disease with stage 1 through stage 4 chronic kidney disease, or unspecified chronic kidney disease; N18.9 Chronic kidney disease, unspecified; E78.5 Hyperlipidemia, unspecified; W10.8XXA Fall (on) (from) other stairs and steps, initial encounter; Z96.651 Presence of right artificial knee joint
CPT/HCPCS: 36415; 51702; 71045; 73502; 73552; 80053; 85025; 85610; 85730; 86850; 86900; 86901; 96374; 96375; 99285; J1171; J2270; J2405